=== PATIENT | female | born 1995 | race Caucasian/White ===

== ENCOUNTER 2017-01-09 22:32 | Inpatient (IN) | payer MEDICAID ==
[~2017-01-09] VITALS: Ht 160 cm; Wt 59.6 kg
[2017-01-10 01:10] VITALS: BP 120/66
[2017-01-10] MEDS ORDERED: ZOLPIDEM TARTRATE 10 MG TABLET PO PRN (01:30)
[2017-01-10 01:50] VITALS: BP 101/57
[2017-01-10 08:48] VITALS: BP 118/62
[2017-01-10] MEDS: FLUoxetine HCL 20 MG CAPSULE PO SCH (12:52)
[2017-01-10] MEDS: OLANZapine 5 MG RAPDIS TABLET PO SCH (12:52)
[2017-01-10 16:10] VITALS: BP 109/74
[2017-01-11 05:19] VITALS: BP 129/67
[2017-01-11 07:47] LABS: BASOPHILS % (AUTO) 0.5 % (0.0-2.0); EOSINOPHILS % (AUTO) 3.4 % (1.0-6.0); HEMATOCRIT 40.5 % (36-46); HEMOGLOBIN 13.1 g/dL (12.0-16.0); LYMPHOCYTES # (AUTO) 2.7 K/uL (1.0-4.8); LYMPHOCYTES % (AUTO) 27.1 % (22.0-44.0); MEAN CORPUSCULAR HEMOGLOBIN 31.2 pg (26.0-34.0); MEAN CORPUSCULAR HGB CONC 32.3 G/dL (31.0-37.0); MEAN CORPUSCULAR VOLUME 97 fL (80-100); MONOCYTES # (AUTO) 0.6 K/uL (0.1-1.0); MONOCYTES % (AUTO) 6.3 % (2.0-9.0); NEUTROPHILS # (AUTO) 6.4 K/uL (1.8-7.7); NEUTROPHILS % (AUTO) 62.7 % (40.0-70.0); PLATELET COUNT (AUTO) 220 K/uL (150-450); RED BLOOD CELL COUNT(AUTO) 4.19 MIL/uL (4.00-5.20); RED CELL DISTRIBUTION WIDTH 13.2 % (11.5-14.5); WHITE BLOOD COUNT (AUTO) 10.2 K/uL (4.5-11.0)
[2017-01-11] MEDS: FLUoxetine HCL 20 MG CAPSULE PO SCH (08:17)
[2017-01-11] MEDS: OLANZapine 5 MG RAPDIS TABLET PO SCH (08:17)
[2017-01-11 08:18] LABS: ALANINE AMINOTRANSFERASE 26 U/L (12-78); ALBUMIN 3.8 g/dL (3.4-5.0); ANION GAP 6 mmol/L (8-16); ASPARTATE AMINOTRANSFERASE 15 U/L (15-37); BILIRUBIN,TOTAL 0.6 mg/dL (0.1-1.0); CALCIUM, TOTAL 8.6 mg/dL (8.8-10.5); CARBON DIOXIDE 32 mmol/L (22-29); CHLORIDE 104 mmol/L (98-107); CREATININE 0.87 mg/dL (0.60-1.30); GLOMERULAR FILTR. RATE CALC > 60 mL/min (>60); POTASSIUM 3.6 mmol/L (3.5-5.1); SODIUM SERUM 142 mmol/L (136-145); TOTAL PROTEIN, SERUM 7.1 g/dL (6.4-8.2); UREA NITROGEN, BLOOD 15 mg/dL (7-18)
[2017-01-11 08:36] VITALS: BP 113/66
[2017-01-11 16:10] VITALS: BP 116/76
[2017-01-11] MEDS ORDERED: IBUPROFEN 400 MG TABLET PO PRN (21:00)
[2017-01-11] MEDS ORDERED: ACETAMINOPHEN 325 MG TABLET PO PRN (21:00)
[2017-01-12 00:08] VITALS: BP 103/64
[2017-01-12 08:16] LABS: HEMOGLOBIN A1C 5.2 % (4.5-6.2)
[2017-01-12 08:32] LABS: CHOL/HDL RATIO 2.1 (3.9-5.7); THYROID STIMULATING HORMONE 1.52 uIU/mL (0.36-3.74)
[2017-01-12] MEDS: OLANZapine 5 MG RAPDIS TABLET PO SCH (09:36)
[2017-01-12] MEDS: FLUoxetine HCL 20 MG CAPSULE PO SCH (09:36)
[2017-01-12 16:00] VITALS: BP 114/68
[2017-01-12] MEDS: OLANZapine 10 MG RAPDIS TABLET PO SCH ×2 (20:46→21:53)
[2017-01-13 05:16] VITALS: BP 130/78
[2017-01-13 08:33] VITALS: BP 131/77
[2017-01-13] MEDS ORDERED: FLUoxetine HCL 20 MG CAPSULE PO SCH (09:00)
[2017-01-13 16:22] VITALS: BP 124/66
[2017-01-13] MEDS ORDERED: OLANZapine 10 MG RAPDIS TABLET PO SCH (21:00)
[2017-01-14 06:41] VITALS: BP 127/76
[2017-01-14 08:15] VITALS: BP 122/72
[2017-01-14] MEDS: FLUoxetine HCL 20 MG CAPSULE PO SCH (08:38)
[2017-01-14 16:22] VITALS: BP 121/75
[2017-01-14] MEDS: OLANZapine 10 MG RAPDIS TABLET PO SCH (20:54)
[2017-01-15 05:52] VITALS: BP 130/73
[2017-01-15] MEDS: FLUoxetine HCL 20 MG CAPSULE PO SCH (08:19)
[2017-01-15 08:35] VITALS: BP 118/66
[2017-01-15 16:15] VITALS: BP 118/72
[2017-01-15] MEDS: OLANZapine 10 MG RAPDIS TABLET PO SCH (20:13)
[2017-01-16 04:15] VITALS: BP 123/90
[2017-01-16] MEDS: BusPIRone HCL 5 MG TABLET PO SCH ×3 (08:05→17:04)
[2017-01-16] MEDS: FLUoxetine HCL 20 MG CAPSULE PO SCH (08:05)
[2017-01-16 08:44] VITALS: BP 128/72
[2017-01-16 16:39] VITALS: BP 120/69
[2017-01-16] MEDS: OLANZapine 10 MG RAPDIS TABLET PO SCH (20:40)
[2017-01-17 00:10] VITALS: BP 124/70
[2017-01-17 08:10] VITALS: BP 118/72
[2017-01-17] MEDS: FLUoxetine HCL 20 MG CAPSULE PO SCH (08:23)
[2017-01-17] MEDS: BusPIRone HCL 5 MG TABLET PO SCH ×3 (08:23→16:31)
[2017-01-17 16:00] VITALS: BP 126/83
[2017-01-17] MEDS: OLANZapine 10 MG RAPDIS TABLET PO SCH (20:24)
[2017-01-18 06:40] VITALS: BP 123/88
[2017-01-18 08:41] VITALS: BP 126/70
[2017-01-18] MEDS: FLUoxetine HCL 20 MG CAPSULE PO SCH (10:00)
[2017-01-18] MEDS: BusPIRone HCL 5 MG TABLET PO SCH (10:01)
[2017-01-18] MEDS: BusPIRone HCL 10 MG TABLET PO SCH ×2 (13:43→16:59)
[2017-01-18 16:09] VITALS: BP 121/72
[2017-01-18] MEDS: OLANZapine 10 MG RAPDIS TABLET PO SCH (21:17)
[2017-01-19 05:25] VITALS: BP 140/91
[2017-01-19] MEDS: BusPIRone HCL 10 MG TABLET PO SCH ×3 (08:20→16:29)
[2017-01-19] MEDS: FLUoxetine HCL 20 MG CAPSULE PO SCH (08:21)
[2017-01-19 08:35] VITALS: BP 121/72
[2017-01-19 16:00] VITALS: BP 122/93
[2017-01-19] MEDS: OLANZapine 10 MG RAPDIS TABLET PO SCH (20:32)
[2017-01-20 06:21] VITALS: BP 138/80
[2017-01-20 08:31] VITALS: BP 121/86
[2017-01-20] MEDS: BusPIRone HCL 15 MG TABLET PO SCH ×3 (08:36→17:41)
[2017-01-20] MEDS: FLUoxetine HCL 20 MG CAPSULE PO SCH (08:36)
[2017-01-20] MEDS: LORazepam 2 MG TABLET PO PRN (16:22)
[2017-01-20 16:27] VITALS: BP 128/89
[2017-01-20] MEDS: OLANZapine 10 MG RAPDIS TABLET PO SCH (20:25)
[2017-01-21 06:04] VITALS: BP 126/85
[2017-01-21 08:15] VITALS: BP 139/80
[2017-01-21] MEDS: LORazepam 2 MG TABLET PO PRN (08:27)
[2017-01-21] MEDS: FLUoxetine HCL 20 MG CAPSULE PO SCH (08:27)
[2017-01-21] MEDS: BusPIRone HCL 15 MG TABLET PO SCH ×2 (08:27→12:29)
[2017-01-21] MEDS ORDERED: FLUO-191 PO (09:46)
[2017-01-21] MEDS ORDERED: OLAN10TA6 PO (09:46)
[2017-01-21] MEDS ORDERED: BUSP15 PO (09:46)
== END 2017-01-21 12:50 | disposition home or self-care (01) | DRG 751 ==
LOC: EDSTATUS 22:33 → B2S 01-10 01:57
PROVIDERS: ADMIT Psychiatry & Neurology Psychiatry; ATTEND Psychiatry & Neurology Psychiatry
DX: F33.3 Major depressive disorder, recurrent, severe with psychotic symptoms (principal); R45.851 Suicidal ideations; F41.9 Anxiety disorder, unspecified; F10.10 Alcohol abuse, uncomplicated; F60.3 Borderline personality disorder; F19.10 Other psychoactive substance abuse, uncomplicated; Z71.41 Alcohol abuse counseling and surveillance of alcoholic
CPT/HCPCS: 83036; 84439; 84443

== ENCOUNTER 2017-01-24 22:00 | Inpatient (IN) | payer MEDICAID, OTHER ==
[~2017-01-24] VITALS: Ht 160 cm; Wt 65.8 kg
[~2017-01-24 22:00] MED LIST: BUSP15 PO; FLUO-191 PO; OLAN10TA6 PO
[2017-01-24 22:35] LABS: BASOPHILS % (AUTO) 0.6 % (0.0-2.0); EOSINOPHILS % (AUTO) 3.2 % (1.0-6.0); HEMATOCRIT 35.9 % (36-46); HEMOGLOBIN 12.1 g/dL (12.0-16.0); LYMPHOCYTES % (AUTO) 26.7 % (22.0-44.0); MEAN CORPUSCULAR HEMOGLOBIN 32.1 pg (26.0-34.0); MEAN CORPUSCULAR HGB CONC 33.6 G/dL (31.0-37.0); MEAN CORPUSCULAR VOLUME 95 fL (80-100); MONOCYTES # (AUTO) 0.7 K/uL (0.1-1.0); MONOCYTES % (AUTO) 6.2 % (2.0-9.0); NEUTROPHILS % (AUTO) 63.3 % (40.0-70.0); PLATELET COUNT (AUTO) 232 K/uL (150-450); RED BLOOD CELL COUNT(AUTO) 3.76 MIL/uL (4.00-5.20); RED CELL DISTRIBUTION WIDTH 13.5 % (11.5-14.5)
[2017-01-24 23:00] LABS: ANION GAP 8 mmol/L (8-16); CALCIUM, TOTAL 8.7 mg/dL (8.8-10.5); CARBON DIOXIDE 27 mmol/L (22-29); CHLORIDE 104 mmol/L (98-107); CREATININE 0.66 mg/dL (0.60-1.30); GLOMERULAR FILTR. RATE CALC > 60 mL/min (>60); POTASSIUM 3.8 mmol/L (3.5-5.1); SODIUM SERUM 139 mmol/L (136-145); UREA NITROGEN, BLOOD 15 mg/dL (7-18)
[2017-01-24 23:07] LABS: ALANINE AMINOTRANSFERASE 30 U/L (12-78); ALBUMIN 3.8 g/dL (3.4-5.0); ASPARTATE AMINOTRANSFERASE 20 U/L (15-37); BILIRUBIN,TOTAL 0.2 mg/dL (0.1-1.0)
[2017-01-24] MEDS ORDERED: LORazepam 2 MG TABLET PO ONE (23:30)
[2017-01-24] MEDS ORDERED: ACETAMINOPHEN 500 MG TABLET PO ONE (23:45)
[2017-01-25 02:07] VITALS: BP 114/74
[2017-01-25] MEDS: ZOLPIDEM TARTRATE 10 MG TABLET PO PRN (02:22)
[2017-01-25 08:12] LABS: CHOL/HDL RATIO 2.1 (3.9-5.7)
[2017-01-25 08:45] VITALS: BP 139/83
[2017-01-25] MEDS: LORazepam 2 MG TABLET PO PRN ×3 (09:33→18:32)
[2017-01-25] MEDS: HALOPERIDOL 5 MG TABLET PO PRN (09:43)
[2017-01-25 16:00] VITALS: BP 128/78
[2017-01-25] MEDS: FLUoxetine HCL 20 MG CAPSULE PO SCH (17:14)
[2017-01-25] MEDS: BusPIRone HCL 10 MG TABLET PO SCH (17:14)
[2017-01-25] MEDS: OLANZapine 10 MG RAPDIS TABLET PO SCH (21:44)
[2017-01-26] MEDS: LORazepam 2 MG TABLET PO PRN ×2 (06:15→17:56)
[2017-01-26 06:40] VITALS: BP 119/78
[2017-01-26 08:29] VITALS: BP 132/73
[2017-01-26] MEDS: FLUoxetine HCL 20 MG CAPSULE PO SCH (08:38)
[2017-01-26] MEDS: BusPIRone HCL 10 MG TABLET PO SCH ×3 (08:38→17:03)
[2017-01-26] MEDS ORDERED: ACETAMINOPHEN 325 MG TABLET PO PRN (10:00)
[2017-01-26] MEDS ORDERED: IBUPROFEN 400 MG TABLET PO PRN (10:00)
[2017-01-26 16:14] VITALS: BP 121/69
[2017-01-26] MEDS: HALOPERIDOL 5 MG TABLET PO PRN (18:54)
[2017-01-26] MEDS: ZOLPIDEM TARTRATE 10 MG TABLET PO PRN (20:41)
[2017-01-26] MEDS: OLANZapine 10 MG RAPDIS TABLET PO SCH (20:41)
[2017-01-27 06:12] VITALS: BP 118/69
[2017-01-27] MEDS: LORazepam 2 MG TABLET PO PRN ×3 (08:38→21:09)
[2017-01-27] MEDS: BusPIRone HCL 10 MG TABLET PO SCH ×3 (08:38→16:42)
[2017-01-27] MEDS: FLUoxetine HCL 20 MG CAPSULE PO SCH (08:39)
[2017-01-27 08:40] VITALS: BP 113/62
[2017-01-27 09:07] LABS: APPEARANCE,URINE CLEAR (CLEAR); GLUCOSE, URINE (UA) NEGATIVE (NEGATIVE); KETONES,URINE NEGATIVE (NEGATIVE); LEUKOCYTE ESTERASE ,URINE NEGATIVE (NEGATIVE); OCCULT BLOOD,URINE NEGATIVE (NEGATIVE); PROTEIN,URINE NEGATIVE (NEGATIVE)
[2017-01-27 09:13] LABS: CHOL/HDL RATIO 2.3 (3.9-5.7); THYROID STIMULATING HORMONE 0.93 uIU/mL (0.36-3.74)
[2017-01-27 09:15] LABS: ADD UA MICROSCOPIC NO
[2017-01-27] MEDS: OLANZapine 10 MG RAPDIS TABLET PO SCH (21:09)
[2017-01-27] MEDS: ZOLPIDEM TARTRATE 10 MG TABLET PO PRN (21:09)
[2017-01-28 03:09] VITALS: BP 113/63
[2017-01-28] MEDS: HALOPERIDOL 5 MG TABLET PO PRN ×3 (03:11→18:03)
[2017-01-28] MEDS: LORazepam 2 MG TABLET PO PRN ×3 (07:22→17:12)
[2017-01-28] MEDS: FLUoxetine HCL 20 MG CAPSULE PO SCH (08:31)
[2017-01-28] MEDS: BusPIRone HCL 10 MG TABLET PO SCH ×3 (08:31→16:04)
[2017-01-28 08:51] VITALS: BP 118/85
[2017-01-28 16:13] VITALS: BP 126/65
[2017-01-28] MEDS ORDERED: DOCUSATE SODIUM 100 MG CAPSULE PO PRN (17:15)
[2017-01-28] MEDS: OLANZapine 10 MG RAPDIS TABLET PO SCH (20:53)
[2017-01-29 03:46] VITALS: BP 111/70
[2017-01-29] MEDS: LORazepam 2 MG TABLET PO PRN ×3 (04:22→14:25)
[2017-01-29 08:03] VITALS: BP 130/61
[2017-01-29] MEDS: FLUoxetine HCL 20 MG CAPSULE PO SCH (08:37)
[2017-01-29] MEDS: BusPIRone HCL 10 MG TABLET PO SCH ×3 (08:37→16:25)
[2017-01-29] MEDS: HALOPERIDOL 5 MG TABLET PO PRN (15:28)
[2017-01-29 16:15] VITALS: BP 122/73
[2017-01-29] MEDS: OLANZapine 10 MG RAPDIS TABLET PO SCH (20:15)
[2017-01-30 04:45] VITALS: BP 112/69
[2017-01-30] MEDS: LORazepam 2 MG TABLET PO PRN ×2 (04:48→11:18)
[2017-01-30] MEDS: FLUoxetine HCL 20 MG CAPSULE PO SCH (08:21)
[2017-01-30] MEDS: BusPIRone HCL 10 MG TABLET PO SCH ×3 (08:21→17:13)
[2017-01-30 09:25] VITALS: BP 116/72
[2017-01-30 16:40] VITALS: BP 127/82
[2017-01-30] MEDS: ZOLPIDEM TARTRATE 10 MG TABLET PO PRN (20:48)
[2017-01-30] MEDS: OLANZapine 10 MG RAPDIS TABLET PO SCH (20:48)
[2017-01-31 06:19] VITALS: BP 111/80
[2017-01-31] MEDS: HALOPERIDOL 5 MG TABLET PO PRN ×2 (08:41→13:19)
[2017-01-31] MEDS: BusPIRone HCL 10 MG TABLET PO SCH ×3 (08:41→16:58)
[2017-01-31] MEDS: FLUoxetine HCL 20 MG CAPSULE PO SCH (08:41)
[2017-01-31] MEDS: LORazepam 2 MG TABLET PO PRN ×3 (08:42→18:05)
[2017-01-31 09:55] VITALS: BP 112/71
[2017-01-31 16:36] VITALS: BP 100/62
[2017-01-31] MEDS: OLANZapine 10 MG RAPDIS TABLET PO SCH (20:49)
[2017-02-01 00:40] VITALS: BP 119/63
[2017-02-01] MEDS: ZOLPIDEM TARTRATE 10 MG TABLET PO PRN (00:50)
[2017-02-01 06:35] VITALS: BP 120/58
[2017-02-01] MEDS: LORazepam 2 MG TABLET PO PRN ×3 (06:38→17:51)
[2017-02-01 08:10] VITALS: BP 108/65
[2017-02-01] MEDS: BusPIRone HCL 10 MG TABLET PO SCH ×3 (08:49→16:22)
[2017-02-01] MEDS: FLUoxetine HCL 20 MG CAPSULE PO SCH (08:49)
[2017-02-01] MEDS: HALOPERIDOL 5 MG TABLET PO PRN ×2 (09:24→14:24)
[2017-02-01 16:14] VITALS: BP 119/75
[2017-02-01] MEDS: OLANZapine 10 MG RAPDIS TABLET PO SCH (21:06)
[2017-02-02 03:39] VITALS: BP 110/70
[2017-02-02] MEDS: LORazepam 2 MG TABLET PO PRN ×2 (03:41→09:25)
[2017-02-02 08:10] VITALS: BP 110/63
[2017-02-02] MEDS: FLUoxetine HCL 20 MG CAPSULE PO SCH (08:34)
[2017-02-02] MEDS: BusPIRone HCL 10 MG TABLET PO SCH ×3 (08:34→17:42)
[2017-02-02 16:14] VITALS: BP 110/65
[2017-02-02] MEDS: HALOPERIDOL 5 MG TABLET PO PRN (17:55)
[2017-02-02] MEDS: ZOLPIDEM TARTRATE 10 MG TABLET PO PRN (21:26)
[2017-02-02] MEDS: OLANZapine 10 MG RAPDIS TABLET PO SCH (21:26)
[2017-02-03 03:20] VITALS: BP_SYST 111; BP_DIAS 7; BP_DIAS 78
[2017-02-03] MEDS: LORazepam 2 MG TABLET PO PRN ×3 (03:21→17:17)
[2017-02-03 08:34] VITALS: BP 123/64
[2017-02-03] MEDS: BusPIRone HCL 10 MG TABLET PO SCH ×3 (08:45→16:45)
[2017-02-03] MEDS: FLUoxetine HCL 20 MG CAPSULE PO SCH (08:45)
[2017-02-03 16:38] VITALS: BP 113/81
[2017-02-03] MEDS: ZOLPIDEM TARTRATE 10 MG TABLET PO PRN (20:27)
[2017-02-03] MEDS: OLANZapine 10 MG RAPDIS TABLET PO SCH (20:35)
[2017-02-04] MEDS: HALOPERIDOL 5 MG TABLET PO PRN (06:06)
[2017-02-04 06:38] VITALS: BP 131/91
[2017-02-04] MEDS: LORazepam 2 MG TABLET PO PRN ×3 (08:11→17:12)
[2017-02-04] MEDS: BusPIRone HCL 10 MG TABLET PO SCH ×3 (08:11→16:55)
[2017-02-04] MEDS: FLUoxetine HCL 20 MG CAPSULE PO SCH (08:11)
[2017-02-04 09:19] VITALS: BP 118/69
[2017-02-04 16:21] VITALS: BP 109/68
[2017-02-04] MEDS: LITHIUM CARBONATE 300 MG CAPSULE PO SCH (16:55)
[2017-02-04] MEDS: OLANZapine 10 MG RAPDIS TABLET PO SCH (20:19)
[2017-02-04] MEDS: ZOLPIDEM TARTRATE 10 MG TABLET PO PRN (20:19)
[2017-02-05 00:56] VITALS: BP 122/80
[2017-02-05] MEDS: LORazepam 2 MG TABLET PO PRN ×3 (00:58→16:09)
[2017-02-05] MEDS: FLUoxetine HCL 20 MG CAPSULE PO SCH (08:39)
[2017-02-05] MEDS: LITHIUM CARBONATE 300 MG CAPSULE PO SCH ×2 (08:39→16:22)
[2017-02-05] MEDS: BusPIRone HCL 10 MG TABLET PO SCH ×3 (08:39→16:22)
[2017-02-05 08:42] VITALS: BP 121/55
[2017-02-05] MEDS: HALOPERIDOL 5 MG TABLET PO PRN (16:09)
[2017-02-05 16:33] VITALS: BP 122/65
[2017-02-05] MEDS: OLANZapine 10 MG RAPDIS TABLET PO SCH (20:30)
[2017-02-05] MEDS: ZOLPIDEM TARTRATE 10 MG TABLET PO PRN (21:19)
[2017-02-06 03:57] VITALS: BP 123/71
[2017-02-06] MEDS: LORazepam 2 MG TABLET PO PRN ×3 (03:59→13:55)
[2017-02-06] MEDS: LITHIUM CARBONATE 300 MG CAPSULE PO SCH ×2 (08:50→16:41)
[2017-02-06] MEDS: BusPIRone HCL 10 MG TABLET PO SCH ×3 (08:50→16:41)
[2017-02-06] MEDS: FLUoxetine HCL 20 MG CAPSULE PO SCH (08:50)
[2017-02-06 08:51] VITALS: BP 112/69
[2017-02-06 16:00] VITALS: BP 108/62
[2017-02-06] MEDS: OLANZapine 10 MG RAPDIS TABLET PO SCH (20:05)
[2017-02-06] MEDS: ZOLPIDEM TARTRATE 10 MG TABLET PO PRN (20:44)
[2017-02-07 01:30] VITALS: BP 110/79
[2017-02-07] MEDS: LORazepam 2 MG TABLET PO PRN ×3 (02:07→18:00)
[2017-02-07] MEDS: BusPIRone HCL 10 MG TABLET PO SCH ×3 (08:48→16:34)
[2017-02-07] MEDS: FLUoxetine HCL 20 MG CAPSULE PO SCH (08:48)
[2017-02-07] MEDS: LITHIUM CARBONATE 300 MG CAPSULE PO SCH ×2 (08:48→16:34)
[2017-02-07 09:25] VITALS: BP 126/67
[2017-02-07 16:15] VITALS: BP 114/68
[2017-02-07] MEDS: OLANZapine 10 MG RAPDIS TABLET PO SCH (20:20)
[2017-02-08 00:40] VITALS: BP 119/76
[2017-02-08] MEDS: ZOLPIDEM TARTRATE 10 MG TABLET PO PRN ×2 (00:42→21:08)
[2017-02-08 07:38] LABS: BASOPHILS % (AUTO) 0.7 % (0.0-2.0); EOSINOPHILS % (AUTO) 3.2 % (1.0-6.0); HEMATOCRIT 37.7 % (36-46); HEMOGLOBIN 12.8 g/dL (12.0-16.0); LYMPHOCYTES # (AUTO) 2.3 K/uL (1.0-4.8); LYMPHOCYTES % (AUTO) 22.6 % (22.0-44.0); MEAN CORPUSCULAR HEMOGLOBIN 32.3 pg (26.0-34.0); MEAN CORPUSCULAR VOLUME 95 fL (80-100); MONOCYTES # (AUTO) 0.7 K/uL (0.1-1.0); MONOCYTES % (AUTO) 6.5 % (2.0-9.0); PLATELET COUNT (AUTO) 215 K/uL (150-450); RED BLOOD CELL COUNT(AUTO) 3.97 MIL/uL (4.00-5.20); RED CELL DISTRIBUTION WIDTH 13.2 % (11.5-14.5); WHITE BLOOD COUNT (AUTO) 10.4 K/uL (4.5-11.0)
[2017-02-08 07:55] LABS: ALANINE AMINOTRANSFERASE 35 U/L (12-78); ALBUMIN 3.8 g/dL (3.4-5.0); ANION GAP 10 mmol/L (8-16); ASPARTATE AMINOTRANSFERASE 17 U/L (15-37); BILIRUBIN,TOTAL 0.3 mg/dL (0.1-1.0); CALCIUM, TOTAL 8.7 mg/dL (8.8-10.5); CARBON DIOXIDE 27 mmol/L (22-29); CHLORIDE 104 mmol/L (98-107); CREATININE 0.76 mg/dL (0.60-1.30); GLOMERULAR FILTR. RATE CALC > 60 mL/min (>60); POTASSIUM 3.8 mmol/L (3.5-5.1); SODIUM SERUM 141 mmol/L (136-145); TOTAL PROTEIN, SERUM 7.3 g/dL (6.4-8.2); UREA NITROGEN, BLOOD 15 mg/dL (7-18)
[2017-02-08 08:15] LABS: LITHIUM 0.35 mmol/L (0.60-1.20)
[2017-02-08] MEDS: BusPIRone HCL 10 MG TABLET PO SCH ×3 (08:21→16:00)
[2017-02-08] MEDS: FLUoxetine HCL 20 MG CAPSULE PO SCH (08:21)
[2017-02-08] MEDS: LITHIUM CARBONATE 300 MG CAPSULE PO SCH ×2 (08:21→16:00)
[2017-02-08 08:25] VITALS: BP 115/69
[2017-02-08] MEDS: LORazepam 2 MG TABLET PO PRN ×2 (10:47→15:55)
[2017-02-08 16:12] VITALS: BP 112/67
[2017-02-08] MEDS: HALOPERIDOL 5 MG TABLET PO PRN (17:37)
[2017-02-08] MEDS: OLANZapine 10 MG RAPDIS TABLET PO SCH (20:14)
[2017-02-09 01:00] VITALS: BP 118/82
[2017-02-09] MEDS: LORazepam 2 MG TABLET PO PRN ×3 (01:12→16:37)
[2017-02-09] MEDS: HALOPERIDOL 5 MG TABLET PO PRN ×2 (01:12→08:16)
[2017-02-09] MEDS: FLUoxetine HCL 20 MG CAPSULE PO SCH (08:15)
[2017-02-09] MEDS: LITHIUM CARBONATE 300 MG CAPSULE PO SCH ×2 (08:15→16:37)
[2017-02-09] MEDS: BusPIRone HCL 10 MG TABLET PO SCH ×3 (08:16→16:38)
[2017-02-09 08:49] VITALS: BP 116/60
[2017-02-09] MEDS ORDERED: DSS100 PO (14:50)
[2017-02-09] MEDS ORDERED: LITH300C3 PO (14:50)
[2017-02-09 16:06] VITALS: BP 110/62
== END 2017-02-09 18:56 | disposition home or self-care (01) | DRG 751 ==
LOC: EMS 22:01 → 3EI 01-25 00:15 → B2S 01-25 00:15
PROVIDERS: ADMIT Psychiatry & Neurology Psychiatry; ATTEND Psychiatry & Neurology Psychiatry
DX: F33.2 Major depressive disorder, recurrent severe without psychotic features (principal); F22 Delusional disorders; R45.851 Suicidal ideations; F41.9 Anxiety disorder, unspecified; F60.3 Borderline personality disorder; Z72.89 Other problems related to lifestyle; Z87.891 Personal history of nicotine dependence
CPT/HCPCS: 83036; 84443; 87081; 99285; G0480

== ENCOUNTER 2017-02-11 20:56 | Emergency (ER) | payer MEDICAID, OTHER ==
[~2017-02-11] VITALS: Ht 167.6 cm; Wt 59.1 kg
[~2017-02-11 20:56] MED LIST changes: +DSS100 PO; +LITH300C3 PO
[2017-02-11] MEDS ORDERED: SODIUM CHLORIDE 0.9% 1,000 ML IV ONE (21:15)
[2017-02-11 21:16] LABS: BASOPHILS % (AUTO) 0.2 % (0.0-2.0); EOSINOPHILS % (AUTO) 0.3 % (1.0-6.0); HEMATOCRIT 38.4 % (36-46); HEMOGLOBIN 13.1 g/dL (12.0-16.0); LYMPHOCYTES # (AUTO) 2.2 K/uL (1.0-4.8); LYMPHOCYTES % (AUTO) 13.2 % (22.0-44.0); MEAN CORPUSCULAR HEMOGLOBIN 32.2 pg (26.0-34.0); MEAN CORPUSCULAR VOLUME 95 fL (80-100); MONOCYTES # (AUTO) 0.9 K/uL (0.1-1.0); MONOCYTES % (AUTO) 5.4 % (2.0-9.0); NEUTROPHILS # (AUTO) 13.3 K/uL (1.8-7.7); NEUTROPHILS % (AUTO) 80.9 % (40.0-70.0); PLATELET COUNT (AUTO) 251 K/uL (150-450); RED BLOOD CELL COUNT(AUTO) 4.06 MIL/uL (4.00-5.20); RED CELL DISTRIBUTION WIDTH 13.4 % (11.5-14.5); WHITE BLOOD COUNT (AUTO) 16.4 K/uL (4.5-11.0)
[2017-02-11 21:25] LABS: ANION GAP 8 mmol/L (8-16); CALCIUM, TOTAL 8.8 mg/dL (8.8-10.5); CARBON DIOXIDE 27 mmol/L (22-29); CHLORIDE 102 mmol/L (98-107); CREATININE 0.88 mg/dL (0.60-1.30); GLOMERULAR FILTR. RATE CALC > 60 mL/min (>60); POTASSIUM 3.6 mmol/L (3.5-5.1); SODIUM SERUM 137 mmol/L (136-145); UREA NITROGEN, BLOOD 9 mg/dL (7-18)
[2017-02-11 21:31] LABS: ALANINE AMINOTRANSFERASE 37 U/L (12-78); ALBUMIN 3.9 g/dL (3.4-5.0); ASPARTATE AMINOTRANSFERASE 21 U/L (15-37); BILIRUBIN,TOTAL 0.3 mg/dL (0.1-1.0); TOTAL PROTEIN, SERUM 7.5 g/dL (6.4-8.2)
[2017-02-11] MEDS ORDERED: ACETAMINOPHEN 500 MG TABLET PO ONE (22:45)
[2017-02-11] MEDS ORDERED: HALOPERIDOL 5 MG TABLET PO ONE (22:45)
[2017-02-11] MEDS ORDERED: LORazepam 1 MG TABLET PO ONE (22:45)
[2017-02-12 00:42] VITALS: BP 114/71
[2017-02-12] MEDS ORDERED: BUSP10TA23 PO (14:48)
== END 2017-02-12 00:43 | disposition home or self-care (01) ==
LOC: EMS 21:03
DX: S00.83XA Contusion of other part of head, initial encounter (principal); S00.81XA Abrasion of other part of head, initial encounter; F20.9 Schizophrenia, unspecified; F15.90 Other stimulant use, unspecified, uncomplicated; Z87.891 Personal history of nicotine dependence; W18.39XA Other fall on same level, initial encounter; Y93.89 Activity, other specified; Y92.89 Other specified places as the place of occurrence of the external cause; Y99.8 Other external cause status
CPT/HCPCS: 36415; 70450; 80053; 80307; 82962; 84703; 85025; 93005; 96360; 96361; 99285; G0480; J7030

== ENCOUNTER 2017-09-17 14:04 | Inpatient (IN) | payer MEDICAID, OTHER ==
[~2017-09-17] VITALS: Ht 160 cm; Wt 71.2 kg
[~2017-09-17 14:04] MED LIST changes: +BUSP10TA23 PO; -BUSP15 PO
[2017-09-17 14:32] LABS: BASOPHILS % (AUTO) 0.8 % (0.0-2.0); EOSINOPHILS % (AUTO) 2.2 % (1.0-6.0); HEMATOCRIT 42.6 % (36-46); HEMOGLOBIN 14.4 g/dL (12.0-16.0); LYMPHOCYTES # (AUTO) 2.3 K/uL (1.0-4.8); LYMPHOCYTES % (AUTO) 22.4 % (22.0-44.0); MEAN CORPUSCULAR HEMOGLOBIN 31.9 pg (26.0-34.0); MEAN CORPUSCULAR HGB CONC 33.7 G/dL (31.0-37.0); MEAN CORPUSCULAR VOLUME 95 fL (80-100); MONOCYTES # (AUTO) 0.8 K/uL (0.1-1.0); MONOCYTES % (AUTO) 7.5 % (2.0-9.0); NEUTROPHILS # (AUTO) 6.9 K/uL (1.8-7.7); NEUTROPHILS % (AUTO) 67.1 % (40.0-70.0); PLATELET COUNT (AUTO) 282 K/uL (150-450); RED CELL DISTRIBUTION WIDTH 12.9 % (11.5-14.5)
[2017-09-17 14:43] LABS: ANION GAP 10 mmol/L (8-16); CALCIUM, TOTAL 9.6 mg/dL (8.8-10.5); CARBON DIOXIDE 30 mmol/L (22-29); CHLORIDE 104 mmol/L (98-107); CREATININE 0.76 mg/dL (0.60-1.30); GLOMERULAR FILTR. RATE CALC > 60 mL/min (>60); GLUCOSE,RANDOM 91 mg/dL (70-110); SODIUM SERUM 144 mmol/L (136-145); UREA NITROGEN, BLOOD 8 mg/dL (7-18)
[2017-09-17 14:51] LABS: ALANINE AMINOTRANSFERASE 17 U/L (12-78); ALBUMIN 4.2 g/dL (3.4-5.0); ALKALINE PHOSPHATASE 72 U/L (46-116); ASPARTATE AMINOTRANSFERASE 10 U/L (15-37); BILIRUBIN,TOTAL 0.5 mg/dL (0.1-1.0); TOTAL PROTEIN, SERUM 8.3 g/dL (6.4-8.2)
[2017-09-17] MEDS ORDERED: ZOLPIDEM TARTRATE 10 MG TABLET PO PRN (16:15)
[2017-09-17 16:19] LABS: AMPHET/METH SCREEN,URINE POSITIVE (NEGATIVE); BARBITURATE SCREEN, URINE NEGATIVE (NEGATIVE); BENZODIAZEPINES SCREEN,URINE NEGATIVE (NEGATIVE); CANNABINOID SCREEN,URINE NEGATIVE (NEGATIVE); COCAINE SCREEN,URINE NEGATIVE (NEGATIVE); METHADONE SCREEN, URINE NEGATIVE (NEGATIVE); OPIATE SCREEN,URINE NEGATIVE (NEGATIVE)
[2017-09-17 16:24] LABS: PHENCYCLIDINE SCREEN,URINE NEGATIVE (NEGATIVE)
[2017-09-17] MEDS ORDERED: ACETAMINOPHEN 500 MG TABLET PO ONE (17:00)
[2017-09-17 18:15] LABS: APPEARANCE,URINE TURBID (CLEAR); GLUCOSE, URINE (UA) NEGATIVE (NEGATIVE); KETONES,URINE 15 mg/dL (NEGATIVE); LEUKOCYTE ESTERASE ,URINE SMALL (NEGATIVE); NITRATE,URINE NEGATIVE (NEGATIVE); OCCULT BLOOD,URINE LARGE (NEGATIVE); PROTEIN,URINE POS 1+ (NEGATIVE)
[2017-09-17 18:30] LABS: BILIRUBIN,URINE PRELIM. POSITIVE (NEGATIVE)
[2017-09-17 18:34] LABS: BACTERIA,URINE Few /HPF (None Seen)
[2017-09-17 18:35] LABS: AMORPHOUS SEDIMENT,UR Many /LPF (None Seen); CALCIUM OXALATE CRYSTALS,UR Few /LPF (None Seen); SQUAMOUS EPITHELIAL CELL,UR Few /LPF (None Seen)
[2017-09-17] MEDS: HALOPERIDOL 5 MG TABLET PO PRN (20:45)
[2017-09-17] MEDS: LORazepam 2 MG TABLET PO PRN (20:45)
[2017-09-17] MEDS ORDERED: ACETAMINOPHEN 325 MG TABLET PO PRN (21:15)
[2017-09-17] MEDS ORDERED: IBUPROFEN 400 MG TABLET PO PRN (21:15)
[2017-09-17 21:55] VITALS: BP 104/68
[2017-09-18] MEDS ORDERED: INFLUENZA VIRUS VACCINE QVS 2017-18 (3YR+)/PF 60 MCG/0.5 ML SYRINGE IM ONE (04:15)
[2017-09-18 06:29] LABS: BASOPHILS % (AUTO) 0.9 % (0.0-2.0); EOSINOPHILS % (AUTO) 4.3 % (1.0-6.0); HEMATOCRIT 39.9 % (36-46); HEMOGLOBIN 13.6 g/dL (12.0-16.0); LYMPHOCYTES # (AUTO) 3.2 K/uL (1.0-4.8); LYMPHOCYTES % (AUTO) 36.7 % (22.0-44.0); MEAN CORPUSCULAR HEMOGLOBIN 32.1 pg (26.0-34.0); MEAN CORPUSCULAR HGB CONC 34.1 G/dL (31.0-37.0); MEAN CORPUSCULAR VOLUME 94 fL (80-100); MONOCYTES # (AUTO) 0.7 K/uL (0.1-1.0); MONOCYTES % (AUTO) 8.1 % (2.0-9.0); NEUTROPHILS # (AUTO) 4.4 K/uL (1.8-7.7); PLATELET COUNT (AUTO) 248 K/uL (150-450); RED BLOOD CELL COUNT(AUTO) 4.24 MIL/uL (4.00-5.20); RED CELL DISTRIBUTION WIDTH 12.8 % (11.5-14.5)
[2017-09-18 07:34] LABS: ALANINE AMINOTRANSFERASE 14 U/L (12-78); ALBUMIN 3.7 g/dL (3.4-5.0); ALKALINE PHOSPHATASE 69 U/L (46-116); ANION GAP 8 mmol/L (8-16); ASPARTATE AMINOTRANSFERASE 11 U/L (15-37); BILIRUBIN,TOTAL 0.5 mg/dL (0.1-1.0); CALCIUM, TOTAL 9.1 mg/dL (8.8-10.5); CARBON DIOXIDE 30 mmol/L (22-29); CHLORIDE 103 mmol/L (98-107); FREE T4 (FREE THYROXINE) 1.09 ng/dL (0.76-1.46); GLOMERULAR FILTR. RATE CALC > 60 mL/min (>60); GLUCOSE,RANDOM 88 mg/dL (70-110); POTASSIUM 4.4 mmol/L (3.5-5.1); SODIUM SERUM 141 mmol/L (136-145); THYROID STIMULATING HORMONE 0.76 uIU/mL (0.36-3.74); TOTAL PROTEIN, SERUM 7.1 g/dL (6.4-8.2); UREA NITROGEN, BLOOD 11 mg/dL (7-18)
[2017-09-18 08:25] VITALS: BP 113/69
[2017-09-18] MEDS: BusPIRone HCL 10 MG TABLET PO SCH ×2 (12:38→16:44)
[2017-09-18] MEDS: DOCUSATE SODIUM 100 MG CAPSULE PO SCH (16:44)
[2017-09-18] MEDS: OLANZapine 10 MG RAPDIS TABLET PO SCH (20:44)
[2017-09-19] MEDS: BusPIRone HCL 10 MG TABLET PO SCH ×3 (08:30→16:37)
[2017-09-19] MEDS: DOCUSATE SODIUM 100 MG CAPSULE PO SCH ×2 (08:30→16:37)
[2017-09-19] MEDS: FLUoxetine HCL 20 MG CAPSULE PO SCH (08:30)
[2017-09-19] MEDS: LITHIUM CARBONATE 300 MG TABLET PO SCH (08:31)
[2017-09-19 09:00] VITALS: BP 117/69
[2017-09-19] MEDS: OLANZapine 10 MG RAPDIS TABLET PO SCH (20:26)
[2017-09-19] MEDS: LORazepam 2 MG TABLET PO PRN (22:49)
[2017-09-19] MEDS: HALOPERIDOL 5 MG TABLET PO PRN (22:49)
[2017-09-19] MEDS ORDERED: DiphenhydrAMINE HCL 50 MG/ML VIAL ONE (22:58)
[2017-09-19] MEDS ORDERED: LORazepam 2 MG/ML VIAL ONE (22:58)
[2017-09-19] MEDS ORDERED: DiphenhydrAMINE HCL 50 MG/ML VIAL IM ONE (23:00)
[2017-09-19] MEDS ORDERED: HALOPERIDOL LACTATE 5 MG/ML VIAL IM ONE (23:00)
[2017-09-19] MEDS ORDERED: LORazepam 2 MG/ML VIAL IM ONE (23:00)
[2017-09-20 09:30] VITALS: BP 112/61
[2017-09-20] MEDS: FLUoxetine HCL 20 MG CAPSULE PO SCH (10:26)
[2017-09-20] MEDS: DOCUSATE SODIUM 100 MG CAPSULE PO SCH ×2 (10:26→16:43)
[2017-09-20] MEDS: BusPIRone HCL 10 MG TABLET PO SCH ×3 (10:26→16:43)
[2017-09-20] MEDS: LITHIUM CARBONATE 300 MG TABLET PO SCH (10:28)
[2017-09-20 17:31] VITALS: BP 126/77
[2017-09-20] MEDS: OLANZapine 10 MG RAPDIS TABLET PO SCH (20:46)
[2017-09-21 08:14] VITALS: BP 120/80
[2017-09-21] MEDS: DOCUSATE SODIUM 100 MG CAPSULE PO SCH ×2 (08:55→16:49)
[2017-09-21] MEDS: FLUoxetine HCL 20 MG CAPSULE PO SCH (08:56)
[2017-09-21] MEDS: BusPIRone HCL 10 MG TABLET PO SCH ×3 (08:56→16:49)
[2017-09-21] MEDS: LITHIUM CARBONATE 300 MG TABLET PO SCH (08:56)
[2017-09-21] MEDS: HALOPERIDOL 5 MG TABLET PO PRN (11:25)
[2017-09-21] MEDS: LORazepam 2 MG TABLET PO PRN (11:25)
[2017-09-21 16:13] VITALS: BP 123/71
[2017-09-21] MEDS: OLANZapine 10 MG RAPDIS TABLET PO SCH (20:29)
[2017-09-22 08:00] VITALS: BP 119/82
[2017-09-22] MEDS: FLUoxetine HCL 20 MG CAPSULE PO SCH (09:33)
[2017-09-22] MEDS: BusPIRone HCL 10 MG TABLET PO SCH ×3 (09:33→17:47)
[2017-09-22] MEDS: LITHIUM CARBONATE 300 MG TABLET PO SCH (09:33)
[2017-09-22] MEDS: DOCUSATE SODIUM 100 MG CAPSULE PO SCH ×2 (09:34→17:47)
[2017-09-22] MEDS: OLANZapine 10 MG RAPDIS TABLET PO SCH (20:18)
[2017-09-23 08:44] VITALS: BP 103/65
[2017-09-23] MEDS: FLUoxetine HCL 20 MG CAPSULE PO SCH (08:48)
[2017-09-23] MEDS: DOCUSATE SODIUM 100 MG CAPSULE PO SCH (08:48)
[2017-09-23] MEDS: BusPIRone HCL 10 MG TABLET PO SCH ×2 (08:49→12:19)
[2017-09-23] MEDS ORDERED: LITHIUM CARBONATE 450 MG ER TABLET PO SCH (09:00)
== END 2017-09-23 14:00 | disposition home or self-care (01) | DRG 750 ==
LOC: EMS 14:05 → 3EC 18:57 → 3EI 09-22 20:48
PROVIDERS: ADMIT Psychiatry & Neurology Child & Adolescent Psychiatry; ATTEND Psychiatry & Neurology Child & Adolescent Psychiatry
PROC: 3E0234Z Introduction of Serum, Toxoid and Vaccine into Muscle, Percutaneous Approach (ICD-10-PCS; principal; 2017-09-18)
DX: F20.0 Paranoid schizophrenia (principal); R45.851 Suicidal ideations; Z91.14 Patient's other noncompliance with medication regimen; F32.9 Major depressive disorder, single episode, unspecified; F15.10 Other stimulant abuse, uncomplicated; F41.9 Anxiety disorder, unspecified; F10.10 Alcohol abuse, uncomplicated; F17.210 Nicotine dependence, cigarettes, uncomplicated; Z23 Encounter for immunization; Z79.899 Other long term (current) drug therapy
CPT/HCPCS: 84439; 84443; 99285; 99406; G0480; J1200; J1630; J2060

== ENCOUNTER 2018-01-03 16:15 | Inpatient (IN) | payer MEDICAID, OTHER ==
[~2018-01-03] VITALS: Ht 160 cm; Wt 67.6 kg
[2018-01-03] MEDS ORDERED: LITH300T3 PO (19:25)
[2018-01-03] MEDS ORDERED: BENZ0.5T44 PO (19:25)
[2018-01-03] MEDS ORDERED: DIPH25TA20 PO (19:25)
[2018-01-03] MEDS ORDERED: HALO5 PO ×2 (19:25)
[2018-01-03 19:46] LABS: BASOPHILS % (AUTO) 0.7 % (0.0-2.0); EOSINOPHILS % (AUTO) 2.5 % (1.0-6.0); HEMATOCRIT 40.2 % (36-46); HEMOGLOBIN 13.9 g/dL (12.0-16.0); LYMPHOCYTES # (AUTO) 2.5 K/uL (1.0-4.8); LYMPHOCYTES % (AUTO) 27.4 % (22.0-44.0); MEAN CORPUSCULAR HEMOGLOBIN 31.5 pg (26.0-34.0); MEAN CORPUSCULAR HGB CONC 34.7 G/dL (31.0-37.0); MEAN CORPUSCULAR VOLUME 91 fL (80-100); MONOCYTES # (AUTO) 0.6 K/uL (0.1-1.0); MONOCYTES % (AUTO) 6.2 % (2.0-9.0); NEUTROPHILS # (AUTO) 5.8 K/uL (1.8-7.7); NEUTROPHILS % (AUTO) 63.2 % (40.0-70.0); PLATELET COUNT (AUTO) 245 K/uL (150-450); RED BLOOD CELL COUNT(AUTO) 4.42 MIL/uL (4.00-5.20); RED CELL DISTRIBUTION WIDTH 12.8 % (11.5-14.5)
[2018-01-03 20:14] LABS: ANION GAP 11 mmol/L (8-16); CALCIUM, TOTAL 8.9 mg/dL (8.8-10.5); CARBON DIOXIDE 27 mmol/L (22-29); CHLORIDE 101 mmol/L (98-107); CREATININE 0.87 mg/dL (0.60-1.30); GLOMERULAR FILTR. RATE CALC > 60 mL/min (>60); GLUCOSE,RANDOM 91 mg/dL (70-110); SODIUM SERUM 139 mmol/L (136-145); UREA NITROGEN, BLOOD 12 mg/dL (7-18)
[2018-01-03 20:21] LABS: ALANINE AMINOTRANSFERASE 19 U/L (12-78); ALBUMIN 4.1 g/dL (3.4-5.0); ALKALINE PHOSPHATASE 75 U/L (46-116); ASPARTATE AMINOTRANSFERASE 15 U/L (15-37); BILIRUBIN,TOTAL 0.7 mg/dL (0.1-1.0); TOTAL PROTEIN, SERUM 8.1 g/dL (6.4-8.2)
[2018-01-04] MEDS ORDERED: ZOLPIDEM TARTRATE 10 MG TABLET PO PRN (01:00)
[2018-01-04 08:29] VITALS: BP 101/72
[2018-01-04] MEDS: LORazepam 2 MG TABLET PO PRN (10:00)
[2018-01-04] MEDS: QUEtiapine FUMARATE 100 MG TABLET PO PRN (10:00)
[2018-01-04] MEDS ORDERED: PROMETHAZINE HCL 25 MG TABLET PO PRN (13:15)
[2018-01-04] MEDS ORDERED: MAGNESIUM HYDROXIDE SUSPENSION 30 ML UDCUP PO PRN (13:15)
[2018-01-04] MEDS ORDERED: HydrOXYzine PAMOATE 50 MG CAPSULE PO PRN (13:15)
[2018-01-04] MEDS ORDERED: GuaiFENesin/D-METHORPHAN [SUGAR-FREE] 200-20MG/10 ML SYRUP UDCUP PO PRN (13:15)
[2018-01-04] MEDS ORDERED: TUBERCULIN, PURIFIED PROTEIN DERIVATIVE 5 TU/0.1 ML SYG ID ONE (13:15)
[2018-01-04] MEDS ORDERED: ACETAMINOPHEN 325 MG TABLET PO PRN ×2 (13:15→16:15)
[2018-01-04] MEDS ORDERED: MAG HYDROX/AL HYDROX/SIMETH ES 30 ML SUSPENSION UDCUP PO PRN (13:15)
[2018-01-04] MEDS ORDERED: OLANZapine 5 MG RAPDIS TABLET PO PRN (13:15)
[2018-01-04] MEDS ORDERED: LOPERAMIDE HCL 2 MG CAPSULE PO PRN (13:15)
[2018-01-04] MEDS ORDERED: IBUPROFEN 400 MG TABLET PO PRN (16:15)
[2018-01-04] MEDS: THIAMINE HCL 100 MG TABLET PO SCH ×2 (17:00→21:17)
[2018-01-04 17:03] VITALS: BP 112/69
[2018-01-04] MEDS: OLANZapine 5 MG RAPDIS TABLET PO SCH (21:17)
[2018-01-05 06:26] VITALS: BP 108/64
[2018-01-05 08:22] VITALS: BP 100/58
[2018-01-05] MEDS: NALTREXONE HCL 50 MG TABLET PO SCH (08:49)
[2018-01-05] MEDS: FOLIC ACID 1 MG TABLET PO SCH (08:49)
[2018-01-05] MEDS: MULTIVITAMINS WITH MINERALS, THERAPEUTIC TABLET PO SCH (08:50)
[2018-01-05] MEDS: THIAMINE HCL 100 MG TABLET PO SCH ×2 (08:50→17:04)
[2018-01-05] MEDS ORDERED: FLUoxetine HCL 20 MG CAPSULE PO SCH (09:00)
[2018-01-05 10:31] LABS: CHOL/HDL RATIO 2.1 (3.9-5.7); FREE T4 (FREE THYROXINE) 0.92 ng/dL (0.76-1.46); THYROID STIMULATING HORMONE 0.54 uIU/mL (0.36-3.74)
[2018-01-05 12:30] VITALS: BP 110/68
[2018-01-05] MEDS: LORazepam 2 MG TABLET PO PRN (12:35)
[2018-01-05 16:05] VITALS: BP 107/71
[2018-01-05] MEDS: QUEtiapine FUMARATE 100 MG TABLET PO PRN (17:04)
[2018-01-05] MEDS ORDERED: OLANZapine 5 MG RAPDIS TABLET PO PRN (18:00)
[2018-01-05] MEDS: OLANZapine 5 MG RAPDIS TABLET PO SCH (21:00)
[2018-01-06 06:50] VITALS: BP 105/70
[2018-01-06] MEDS ORDERED: FLUoxetine HCL 20 MG CAPSULE PO SCH (09:00)
[2018-01-06] MEDS: NALTREXONE HCL 50 MG TABLET PO SCH (09:04)
[2018-01-06] MEDS: MULTIVITAMINS WITH MINERALS, THERAPEUTIC TABLET PO SCH (09:04)
[2018-01-06] MEDS: FOLIC ACID 1 MG TABLET PO SCH (09:04)
[2018-01-06] MEDS: THIAMINE HCL 100 MG TABLET PO SCH ×2 (09:04→16:54)
[2018-01-06 09:29] VITALS: BP 110/55
[2018-01-06 11:50] VITALS: BP 112/68
[2018-01-06] MEDS: LORazepam 2 MG TABLET PO PRN ×2 (11:58→16:09)
[2018-01-06] MEDS ORDERED: OLAN5TAB30 PO (16:03)
[2018-01-06] MEDS ORDERED: FLUO-191 PO (16:03)
[2018-01-06] MEDS ORDERED: NALT50TA PO (16:03)
[2018-01-06 16:26] VITALS: BP 99/69
== END 2018-01-06 18:00 | disposition home or self-care (01) | DRG 750 ==
LOC: EMS 16:18 → B3A 01-04 01:11
PROVIDERS: ADMIT Psychiatry & Neurology Psychiatry; ATTEND Psychiatry & Neurology Psychiatry
DX: F25.9 Schizoaffective disorder, unspecified (principal); R45.851 Suicidal ideations; Z91.19 Patient's noncompliance with other medical treatment and regimen; F10.10 Alcohol abuse, uncomplicated; G47.00 Insomnia, unspecified; K59.09 Other constipation; Z59.0 Homelessness; Z79.899 Other long term (current) drug therapy; Z71.41 Alcohol abuse counseling and surveillance of alcoholic
CPT/HCPCS: 84436; 84439; 84443; 99285; G0480

== ENCOUNTER 2018-06-01 18:57 | Inpatient (IN) | payer MEDICAID ==
[~2018-06-01] VITALS: Ht 160 cm; Wt 72.9 kg
[~2018-06-01 18:57] MED LIST changes: -BUSP10TA23 PO; -DSS100 PO; -LITH300C3 PO; +NALT50TA PO; -OLAN10TA6 PO; +OLAN5TAB30 PO
[2018-06-01 20:11] VITALS: BP 112/77
[2018-06-01 21:01] VITALS: BP 123/76
[2018-06-01] MEDS: ZOLPIDEM TARTRATE 10 MG TABLET PO PRN (21:02)
[2018-06-01] MEDS ORDERED: ONDANSETRON HCL 4 MG TABLET PO PRN (21:15)
[2018-06-01] MEDS ORDERED: GuaiFENesin/D-METHORPHAN [SUGAR-FREE] 200-20MG/10 ML SYRUP UDCUP PO PRN (21:15)
[2018-06-01] MEDS ORDERED: IBUPROFEN 400 MG TABLET PO PRN (21:15)
[2018-06-01] MEDS ORDERED: LOPERAMIDE HCL 2 MG CAPSULE PO PRN (21:15)
[2018-06-01] MEDS ORDERED: ACETAMINOPHEN 325 MG TABLET PO PRN (21:15)
[2018-06-01] MEDS ORDERED: MAG HYDROX/AL HYDROX/SIMETH ES 30 ML SUSPENSION UDCUP PO PRN (21:15)
[2018-06-01] MEDS ORDERED: CloNIDine HCL 0.1 MG TABLET PO PRN (21:15)
[2018-06-01] MEDS ORDERED: MAGNESIUM HYDROXIDE SUSPENSION 30 ML UDCUP PO PRN (21:15)
[2018-06-01] MEDS ORDERED: NICOTINE 14 MG/24 HOUR PATCH TD PRN (21:15)
[2018-06-01] MEDS ORDERED: PETROLATUM,WHITE 71 GM JELLY TP PRN (21:15)
[2018-06-01] MEDS ORDERED: ALBUTEROL SULFATE HFA 90 MCG/PUFF 8 GM INHALER IH PRN (21:15)
[2018-06-01] MEDS ORDERED: DOCUSATE SODIUM 100 MG CAPSULE PO PRN (21:15)
[2018-06-02 06:57] VITALS: BP 117/66
[2018-06-02 07:42] LABS: BASOPHILS % (AUTO) 0.7 % (0.0-2.0); EOSINOPHILS % (AUTO) 3.7 % (1.0-6.0); HEMATOCRIT 39.2 % (36-46); HEMOGLOBIN 13.5 g/dL (12.0-16.0); LYMPHOCYTES # (AUTO) 3.3 K/uL (1.0-4.8); LYMPHOCYTES % (AUTO) 31.7 % (22.0-44.0); MEAN CORPUSCULAR HEMOGLOBIN 32.2 pg (26.0-34.0); MEAN CORPUSCULAR HGB CONC 34.5 G/dL (31.0-37.0); MEAN CORPUSCULAR VOLUME 93 fL (80-100); MONOCYTES # (AUTO) 0.6 K/uL (0.1-1.0); MONOCYTES % (AUTO) 5.8 % (2.0-9.0); NEUTROPHILS # (AUTO) 6.1 K/uL (1.8-7.7); NEUTROPHILS % (AUTO) 58.1 % (40.0-70.0); PLATELET COUNT (AUTO) 276 K/uL (150-450); RED BLOOD CELL COUNT(AUTO) 4.21 MIL/uL (4.00-5.20); RED CELL DISTRIBUTION WIDTH 12.8 % (11.5-14.5)
[2018-06-02 08:00] LABS: HEMOGLOBIN A1C 4.9 % (4.5-6.2)
[2018-06-02 08:07] LABS: ALANINE AMINOTRANSFERASE 27 U/L (12-78); ALBUMIN 3.6 g/dL (3.4-5.0); ALKALINE PHOSPHATASE 81 U/L (46-116); ANION GAP 8 mmol/L (8-16); ASPARTATE AMINOTRANSFERASE 18 U/L (15-37); BILIRUBIN,TOTAL 0.5 mg/dL (0.1-1.0); CALCIUM, TOTAL 8.9 mg/dL (8.8-10.5); CARBON DIOXIDE 29 mmol/L (22-29); CHLORIDE 100 mmol/L (98-107); CHOL/HDL RATIO 2.1 (3.9-5.7); CHOLESTEROL 110 mg/dL (131-200); FREE T4 (FREE THYROXINE) 0.75 ng/dL (0.76-1.46); GLOMERULAR FILTR. RATE CALC > 60 mL/min (>60); GLUCOSE,RANDOM 83 mg/dL (70-110); HCG,QUANTITATIVE < 1 mIU/mL (0-6); HDL CHOLESTEROL 52 mg/dL (40-60); LDL CHOL (CALC.) 40 mg/dL (0-130); POTASSIUM 4.3 mmol/L (3.5-5.1); SODIUM SERUM 137 mmol/L (136-145); THYROID STIMULATING HORMONE 1.43 uIU/mL (0.36-3.74); TOTAL PROTEIN, SERUM 6.9 g/dL (6.4-8.2); TRIGLYCERIDES 89 mg/dL (15-150); UREA NITROGEN, BLOOD 7 mg/dL (7-18)
[2018-06-02 08:25] VITALS: BP 109/53
[2018-06-02] MEDS: LORazepam 2 MG TABLET PO PRN (11:18)
[2018-06-02] MEDS: HALOPERIDOL 5 MG TABLET PO PRN (11:18)
[2018-06-02 16:57] VITALS: BP 100/65
[2018-06-03 08:17] VITALS: BP 106/57
[2018-06-03] MEDS: LORazepam 2 MG TABLET PO PRN ×2 (09:27→16:42)
[2018-06-03 16:00] VITALS: BP 112/69
[2018-06-03] MEDS: LITHIUM CARBONATE 300 MG CAPSULE PO SCH (16:42)
[2018-06-03] MEDS: OLANZapine 10 MG RAPDIS TABLET PO SCH (20:24)
[2018-06-03] MEDS: ZOLPIDEM TARTRATE 10 MG TABLET PO PRN (21:28)
[2018-06-04 04:33] VITALS: BP 108/63
[2018-06-04 08:15] VITALS: BP 139/86
[2018-06-04] MEDS: HALOPERIDOL 5 MG TABLET PO PRN ×2 (09:25→23:07)
[2018-06-04] MEDS: LORazepam 2 MG TABLET PO PRN ×2 (09:25→23:07)
[2018-06-04] MEDS: LITHIUM CARBONATE 300 MG CAPSULE PO SCH ×2 (09:26→16:10)
[2018-06-04 17:23] VITALS: BP 116/65
[2018-06-04] MEDS: OLANZapine 10 MG RAPDIS TABLET PO SCH (20:30)
[2018-06-04 23:50] VITALS: BP 110/67
[2018-06-04] MEDS: ZOLPIDEM TARTRATE 10 MG TABLET PO PRN (23:54)
[2018-06-05 08:23] VITALS: BP 141/98
[2018-06-05] MEDS: LITHIUM CARBONATE 300 MG CAPSULE PO SCH ×2 (09:16→17:00)
[2018-06-05] MEDS: OLANZapine 10 MG RAPDIS TABLET PO SCH (20:47)
[2018-06-06 00:07] VITALS: BP 108/71
[2018-06-06 08:14] VITALS: BP 113/73
[2018-06-06] MEDS: LITHIUM CARBONATE 300 MG CAPSULE PO SCH ×2 (09:52→17:02)
[2018-06-06 16:14] VITALS: BP 116/78
[2018-06-06] MEDS: OLANZapine 10 MG RAPDIS TABLET PO SCH (21:10)
[2018-06-06] MEDS: HALOPERIDOL 5 MG TABLET PO PRN (23:34)
[2018-06-06] MEDS: LORazepam 2 MG TABLET PO PRN (23:34)
[2018-06-07] VITALS: BP 141/79
[2018-06-07] MEDS: ZOLPIDEM TARTRATE 10 MG TABLET PO PRN (01:38)
[2018-06-07] MEDS: LITHIUM CARBONATE 300 MG CAPSULE PO SCH ×2 (08:31→16:43)
[2018-06-07] MEDS: LORazepam 2 MG TABLET PO PRN (08:36)
[2018-06-07 08:45] VITALS: BP 108/66
[2018-06-07] MEDS ORDERED: LITH300C3 PO (15:50)
[2018-06-07] MEDS ORDERED: OLAN10TA6 PO (15:53)
[2018-06-07 16:27] VITALS: BP 115/69
== END 2018-06-07 17:30 | disposition home or self-care (01) | DRG 750 ==
LOC: B3A 19:50
PROVIDERS: ADMIT Psychiatry & Neurology Psychiatry; ATTEND Psychiatry & Neurology Psychiatry
DX: F25.9 Schizoaffective disorder, unspecified (principal); R45.851 Suicidal ideations; F41.9 Anxiety disorder, unspecified; F32.9 Major depressive disorder, single episode, unspecified; K59.00 Constipation, unspecified; F10.10 Alcohol abuse, uncomplicated; G47.00 Insomnia, unspecified; Z71.51 Drug abuse counseling and surveillance of drug abuser; Z71.41 Alcohol abuse counseling and surveillance of alcoholic
CPT/HCPCS: 83036; 84439; 84443

== ENCOUNTER 2018-06-13 12:14 | Inpatient (IN) | payer MEDICAID, OTHER ==
[~2018-06-13] VITALS: Ht 160 cm; Wt 75.4 kg
[~2018-06-13 12:14] MED LIST changes: -FLUO-191 PO; +LITH300C3 PO; -NALT50TA PO; +OLAN10TA6 PO; -OLAN5TAB30 PO
[2018-06-13] MEDS ORDERED: CLOZ25TA4 PO (13:24)
[2018-06-13] MEDS ORDERED: PALI117D IM (13:24)
[2018-06-13 13:45] LABS: BASOPHILS % (AUTO) 0.7 % (0.0-2.0); EOSINOPHILS % (AUTO) 2.3 % (1.0-6.0); HEMATOCRIT 40.3 % (36-46); HEMOGLOBIN 13.5 g/dL (12.0-16.0); LYMPHOCYTES # (AUTO) 3.1 K/uL (1.0-4.8); LYMPHOCYTES % (AUTO) 27.1 % (22.0-44.0); MEAN CORPUSCULAR HEMOGLOBIN 31.9 pg (26.0-34.0); MEAN CORPUSCULAR HGB CONC 33.6 G/dL (31.0-37.0); MEAN CORPUSCULAR VOLUME 95 fL (80-100); MONOCYTES # (AUTO) 0.7 K/uL (0.1-1.0); MONOCYTES % (AUTO) 6.3 % (2.0-9.0); NEUTROPHILS # (AUTO) 7.2 K/uL (1.8-7.7); NEUTROPHILS % (AUTO) 63.6 % (40.0-70.0); PLATELET COUNT (AUTO) 274 K/uL (150-450); RED BLOOD CELL COUNT(AUTO) 4.24 MIL/uL (4.00-5.20); RED CELL DISTRIBUTION WIDTH 12.8 % (11.5-14.5)
[2018-06-13 14:00] LABS: ANION GAP 7 mmol/L (8-16); CARBON DIOXIDE 33 mmol/L (22-29); CHLORIDE 103 mmol/L (98-107); CREATININE 0.63 mg/dL (0.60-1.30); GLOMERULAR FILTR. RATE CALC > 60 mL/min (>60); GLUCOSE,RANDOM 98 mg/dL (70-110); POTASSIUM 4.1 mmol/L (3.5-5.1); SODIUM SERUM 143 mmol/L (136-145); UREA NITROGEN, BLOOD 7 mg/dL (7-18)
[2018-06-13 14:06] LABS: ALANINE AMINOTRANSFERASE 35 U/L (12-78); ALBUMIN 3.6 g/dL (3.4-5.0); ALKALINE PHOSPHATASE 91 U/L (46-116); ASPARTATE AMINOTRANSFERASE 18 U/L (15-37); BILIRUBIN,TOTAL 0.2 mg/dL (0.1-1.0); TOTAL PROTEIN, SERUM 7.6 g/dL (6.4-8.2)
[2018-06-13 14:10] LABS: AMPHET/METH SCREEN,URINE NEGATIVE (NEGATIVE); BARBITURATE SCREEN, URINE NEGATIVE (NEGATIVE); BENZODIAZEPINES SCREEN,URINE NEGATIVE (NEGATIVE); CANNABINOID SCREEN,URINE NEGATIVE (NEGATIVE); COCAINE SCREEN,URINE NEGATIVE (NEGATIVE); METHADONE SCREEN, URINE NEGATIVE (NEGATIVE); OPIATE SCREEN,URINE NEGATIVE (NEGATIVE); PHENCYCLIDINE SCREEN,URINE NEGATIVE (NEGATIVE)
[2018-06-13] MEDS ORDERED: HALOPERIDOL 5 MG TABLET PO ONE (14:15)
[2018-06-13] MEDS ORDERED: LORazepam 2 MG TABLET PO ONE (14:15)
[2018-06-13 17:15] VITALS: BP 119/72
[2018-06-13] MEDS ORDERED: LOPERAMIDE HCL 2 MG CAPSULE PO PRN (17:30)
[2018-06-13] MEDS ORDERED: ACETAMINOPHEN 325 MG TABLET PO PRN (17:30)
[2018-06-13] MEDS ORDERED: CloNIDine HCL 0.1 MG TABLET PO PRN (17:30)
[2018-06-13] MEDS ORDERED: MAG HYDROX/AL HYDROX/SIMETH ES 30 ML SUSPENSION UDCUP PO PRN (17:30)
[2018-06-13] MEDS ORDERED: IBUPROFEN 400 MG TABLET PO PRN (17:30)
[2018-06-13] MEDS ORDERED: DOCUSATE SODIUM 100 MG CAPSULE PO PRN (17:30)
[2018-06-13] MEDS ORDERED: ALBUTEROL SULFATE HFA 90 MCG/PUFF 8 GM INHALER IH PRN (17:30)
[2018-06-13] MEDS ORDERED: MAGNESIUM HYDROXIDE SUSPENSION 30 ML UDCUP PO PRN (17:30)
[2018-06-13] MEDS ORDERED: ONDANSETRON HCL 4 MG TABLET PO PRN (17:30)
[2018-06-13] MEDS ORDERED: GuaiFENesin/D-METHORPHAN [SUGAR-FREE] 200-20MG/10 ML SYRUP UDCUP PO PRN (17:30)
[2018-06-13] MEDS: OLANZapine 10 MG RAPDIS TABLET PO SCH (21:00)
[2018-06-14 00:05] VITALS: BP 107/70
[2018-06-14 08:32] VITALS: BP 110/76
[2018-06-14] MEDS: LITHIUM CARBONATE 300 MG CAPSULE PO SCH ×2 (09:04→16:49)
[2018-06-14] MEDS: HALOPERIDOL 5 MG TABLET PO PRN (12:50)
[2018-06-14] MEDS: LORazepam 2 MG TABLET PO PRN (12:50)
[2018-06-14 16:00] VITALS: BP 114/83
[2018-06-14] MEDS: OLANZapine 10 MG RAPDIS TABLET PO SCH (20:19)
[2018-06-15 06:45] VITALS: BP 107/60
[2018-06-15 08:21] VITALS: BP 105/59
[2018-06-15] MEDS: LITHIUM CARBONATE 300 MG CAPSULE PO SCH ×2 (08:27→16:49)
[2018-06-15] MEDS: LORazepam 2 MG TABLET PO PRN (14:02)
[2018-06-15] MEDS: HALOPERIDOL 5 MG TABLET PO PRN ×2 (15:03→22:45)
[2018-06-15 16:39] VITALS: BP 110/68
[2018-06-15] MEDS: OLANZapine 10 MG RAPDIS TABLET PO SCH (20:54)
[2018-06-15] MEDS: ZOLPIDEM TARTRATE 10 MG TABLET PO PRN (22:45)
[2018-06-16] MEDS: LITHIUM CARBONATE 300 MG CAPSULE PO SCH ×2 (08:25→16:13)
[2018-06-16] MEDS: LORazepam 2 MG TABLET PO PRN (08:25)
[2018-06-16 08:43] VITALS: BP 106/59
[2018-06-16 16:08] VITALS: BP 103/60
[2018-06-16] MEDS: OLANZapine 10 MG RAPDIS TABLET PO SCH (20:29)
[2018-06-16] MEDS: ZOLPIDEM TARTRATE 10 MG TABLET PO PRN (21:22)
[2018-06-17 06:21] VITALS: BP 115/78
[2018-06-17 08:29] VITALS: BP 118/71
[2018-06-17] MEDS: LITHIUM CARBONATE 300 MG CAPSULE PO SCH ×2 (09:37→17:09)
[2018-06-17] MEDS: HALOPERIDOL 5 MG TABLET PO PRN (14:43)
[2018-06-17] MEDS: LORazepam 2 MG TABLET PO PRN (14:43)
[2018-06-17 19:07] VITALS: BP 128/75
[2018-06-17] MEDS: ZOLPIDEM TARTRATE 10 MG TABLET PO PRN (20:17)
[2018-06-17] MEDS: OLANZapine 10 MG RAPDIS TABLET PO SCH (20:18)
[2018-06-18 06:31] VITALS: BP 99/61
[2018-06-18] MEDS: LORazepam 2 MG TABLET PO PRN ×2 (08:11→16:14)
[2018-06-18] MEDS: HALOPERIDOL 5 MG TABLET PO PRN (08:11)
[2018-06-18] MEDS: LITHIUM CARBONATE 300 MG CAPSULE PO SCH ×2 (08:11→16:14)
[2018-06-18 16:15] VITALS: BP 112/69
[2018-06-18] MEDS: OLANZapine 10 MG RAPDIS TABLET PO SCH (20:04)
[2018-06-18] MEDS: ZOLPIDEM TARTRATE 10 MG TABLET PO PRN (20:05)
[2018-06-19 01:12] VITALS: BP 111/83
[2018-06-19] MEDS: LITHIUM CARBONATE 300 MG CAPSULE PO SCH ×2 (08:16→16:53)
[2018-06-19] MEDS: LORazepam 2 MG TABLET PO PRN (10:51)
[2018-06-19 16:11] VITALS: BP 122/77
[2018-06-19] MEDS: OLANZapine 10 MG RAPDIS TABLET PO SCH (20:52)
[2018-06-20 00:24] VITALS: BP 128/65
[2018-06-20 08:35] VITALS: BP 100/66
[2018-06-20] MEDS: LITHIUM CARBONATE 300 MG CAPSULE PO SCH ×2 (09:17→17:22)
[2018-06-20] MEDS: HALOPERIDOL 5 MG TABLET PO PRN ×2 (10:55→17:23)
[2018-06-20] MEDS: LORazepam 2 MG TABLET PO PRN ×2 (10:55→17:23)
[2018-06-20 16:58] VITALS: BP 103/68
[2018-06-20] MEDS: OLANZapine 10 MG RAPDIS TABLET PO SCH (21:07)
[2018-06-21 06:31] VITALS: BP 108/70
[2018-06-21] MEDS: LITHIUM CARBONATE 300 MG CAPSULE PO SCH ×2 (08:03→17:08)
[2018-06-21 08:18] VITALS: BP 107/71
[2018-06-21] MEDS: HALOPERIDOL 5 MG TABLET PO PRN ×2 (10:59→17:08)
[2018-06-21] MEDS: LORazepam 2 MG TABLET PO PRN ×2 (10:59→17:08)
[2018-06-21 16:26] VITALS: BP 115/67
[2018-06-21] MEDS: OLANZapine 10 MG RAPDIS TABLET PO SCH (20:49)
[2018-06-21] MEDS: ZOLPIDEM TARTRATE 10 MG TABLET PO PRN (21:56)
[2018-06-22 06:50] VITALS: BP 108/71
[2018-06-22] MEDS: LITHIUM CARBONATE 300 MG CAPSULE PO SCH ×2 (08:23→16:07)
[2018-06-22 08:32] LABS: BASOPHILS % (AUTO) 0.7 % (0.0-2.0); EOSINOPHILS % (AUTO) 2.9 % (1.0-6.0); HEMATOCRIT 38.8 % (36-46); HEMOGLOBIN 13.2 g/dL (12.0-16.0); LYMPHOCYTES # (AUTO) 2.9 K/uL (1.0-4.8); LYMPHOCYTES % (AUTO) 24.3 % (22.0-44.0); MEAN CORPUSCULAR HEMOGLOBIN 31.7 pg (26.0-34.0); MEAN CORPUSCULAR VOLUME 93 fL (80-100); MONOCYTES # (AUTO) 0.4 K/uL (0.1-1.0); MONOCYTES % (AUTO) 3.3 % (2.0-9.0); NEUTROPHILS # (AUTO) 8.2 K/uL (1.8-7.7); NEUTROPHILS % (AUTO) 68.8 % (40.0-70.0); PLATELET COUNT (AUTO) 261 K/uL (150-450); RED BLOOD CELL COUNT(AUTO) 4.16 MIL/uL (4.00-5.20); RED CELL DISTRIBUTION WIDTH 12.9 % (11.5-14.5)
[2018-06-22 08:34] VITALS: BP 107/55
[2018-06-22] MEDS ORDERED: OLAN10TA6 PO (13:58)
== END 2018-06-22 16:35 | disposition home or self-care (01) | DRG 750 ==
LOC: EMS 12:15 → B3A 14:17
PROVIDERS: ADMIT Psychiatry & Neurology Psychiatry; ATTEND Psychiatry & Neurology Psychiatry
DX: F20.0 Paranoid schizophrenia (principal); R45.851 Suicidal ideations; F31.9 Bipolar disorder, unspecified; G47.00 Insomnia, unspecified; K59.00 Constipation, unspecified; F17.200 Nicotine dependence, unspecified, uncomplicated; F10.10 Alcohol abuse, uncomplicated; D72.829 Elevated white blood cell count, unspecified; Z71.41 Alcohol abuse counseling and surveillance of alcoholic; Z28.21 Immunization not carried out because of patient refusal; Z91.5 Personal history of self-harm; Z71.51 Drug abuse counseling and surveillance of drug abuser
CPT/HCPCS: 87081; G0480

== ENCOUNTER 2019-10-24 18:00 | Inpatient (IN) | payer MEDICAID, OTHER ==
[~2019-10-24] VITALS: Ht 157.5 cm; Wt 68.1 kg
[2019-10-24] MEDS ORDERED: LORazepam 2 MG TABLET PO ONE (18:45)
[2019-10-24] MEDS ORDERED: HALOPERIDOL 5 MG TABLET PO ONE (18:45)
[2019-10-24 18:51] LABS: BASOPHILS % (AUTO) 0.4 % (0.0-2.0); EOSINOPHILS % (AUTO) 0 % (1.0-6.0); HEMATOCRIT 40.2 % (36-46); HEMOGLOBIN 13.2 g/dL (12.0-16.0); LYMPHOCYTES # (AUTO) 1.4 K/uL (1.0-4.8); LYMPHOCYTES % (AUTO) 6.7 % (22.0-44.0); MEAN CORPUSCULAR HEMOGLOBIN 30.6 pg (26.0-34.0); MEAN CORPUSCULAR HGB CONC 32.9 G/dL (31.0-37.0); MEAN CORPUSCULAR VOLUME 93 fL (80-100); MONOCYTES # (AUTO) 0.9 K/uL (0.1-1.0); MONOCYTES % (AUTO) 4.2 % (2.0-9.0); NEUTROPHILS # (AUTO) 18.9 K/uL (1.8-7.7); NEUTROPHILS % (AUTO) 88.7 % (40.0-70.0); PLATELET COUNT (AUTO) 295 K/uL (150-450); RED BLOOD CELL COUNT(AUTO) 4.32 MIL/uL (4.00-5.20); RED CELL DISTRIBUTION WIDTH 12.7 % (11.5-14.5)
[2019-10-24 19:00] LABS: ANION GAP 12 mmol/L (8-16); CARBON DIOXIDE 26 mmol/L (22-29); CHLORIDE 102 mmol/L (98-107); CREATININE 0.91 mg/dL (0.60-1.30); GLOMERULAR FILTR. RATE CALC > 60 mL/min (>60); GLUCOSE,RANDOM 115 mg/dL (70-110); POTASSIUM 3.4 mmol/L (3.5-5.1); SODIUM SERUM 140 mmol/L (136-145); UREA NITROGEN, BLOOD 5 mg/dL (7-18)
[2019-10-24 19:05] LABS: ALANINE AMINOTRANSFERASE 16 U/L (12-78); ALBUMIN 4.1 g/dL (3.4-5.0); ALKALINE PHOSPHATASE 87 U/L (46-116); ASPARTATE AMINOTRANSFERASE 11 U/L (15-37); BILIRUBIN,TOTAL 0.3 mg/dL (0.1-1.0); TOTAL PROTEIN, SERUM 7.5 g/dL (6.4-8.2)
[2019-10-24 19:18] LABS: LITHIUM < 0.20 mmol/L (0.60-1.20)
[2019-10-24 19:20] LABS: PLATELET MORPHOLOGY COMMENT NORMAL
[2019-10-24] MEDS ORDERED: ZOLPIDEM TARTRATE 10 MG TABLET PO PRN (21:45)
[2019-10-24] MEDS ORDERED: QUEtiapine FUMARATE 100 MG TABLET PO PRN (21:45)
[2019-10-24 22:02] VITALS: BP 136/87
[2019-10-25] MEDS: LORazepam 2 MG TABLET PO PRN (00:06)
[2019-10-25 00:08] VITALS: BP 133/88
[2019-10-25 08:04] LABS: CHOL/HDL RATIO 2.1 (3.9-5.7)
[2019-10-25 10:22] VITALS: BP 117/72
[2019-10-25] MEDS: DIVALPROEX SODIUM 500 MG DR TABLET PO SCH ×2 (10:29→20:25)
[2019-10-25] MEDS ORDERED: ALBUTEROL SULFATE HFA 90 MCG/PUFF 8 GM INHALER IH PRN (10:30)
[2019-10-25] MEDS ORDERED: MAG HYDROX/AL HYDROX/SIMETH ES 30 ML SUSPENSION UDCUP PO PRN (10:30)
[2019-10-25] MEDS ORDERED: CloNIDine HCL 0.1 MG TABLET PO PRN (10:30)
[2019-10-25] MEDS ORDERED: IBUPROFEN 400 MG TABLET PO PRN (10:30)
[2019-10-25] MEDS ORDERED: NICOTINE 14 MG/24 HOUR PATCH TD PRN (10:30)
[2019-10-25] MEDS ORDERED: DOCUSATE SODIUM 100 MG CAPSULE PO PRN (10:30)
[2019-10-25] MEDS ORDERED: ONDANSETRON HCL 4 MG TABLET PO PRN (10:30)
[2019-10-25] MEDS ORDERED: MAGNESIUM HYDROXIDE SUSPENSION 30 ML UDCUP PO PRN (10:30)
[2019-10-25] MEDS ORDERED: GuaiFENesin/D-METHORPHAN [SUGAR-FREE] 200-20MG/10 ML SYRUP UDCUP PO PRN (10:30)
[2019-10-25] MEDS ORDERED: ACETAMINOPHEN 325 MG TABLET PO PRN (10:30)
[2019-10-25] MEDS ORDERED: PETROLATUM,WHITE 28 GM JELLY TP PRN (10:30)
[2019-10-25] MEDS ORDERED: LOPERAMIDE HCL 2 MG CAPSULE PO PRN (10:30)
[2019-10-25 16:55] VITALS: BP 142/86
[2019-10-25] MEDS: OLANZapine 5 MG RAPDIS TABLET PO SCH (20:25)
[2019-10-26] MEDS: DIVALPROEX SODIUM 500 MG DR TABLET PO SCH ×2 (08:58→20:23)
[2019-10-26 10:23] VITALS: BP 105/57
[2019-10-26 16:00] VITALS: BP 91/50
[2019-10-26] MEDS: OLANZapine 5 MG RAPDIS TABLET PO SCH (20:23)
[2019-10-27 07:54] LABS: BASOPHILS % (AUTO) 0.6 % (0.0-2.0); EOSINOPHILS % (AUTO) 3.6 % (1.0-6.0); HEMATOCRIT 37.6 % (36-46); HEMOGLOBIN 12.4 g/dL (12.0-16.0); LYMPHOCYTES # (AUTO) 2.5 K/uL (1.0-4.8); LYMPHOCYTES % (AUTO) 34.3 % (22.0-44.0); MEAN CORPUSCULAR HEMOGLOBIN 30.9 pg (26.0-34.0); MEAN CORPUSCULAR HGB CONC 33.1 G/dL (31.0-37.0); MEAN CORPUSCULAR VOLUME 94 fL (80-100); MONOCYTES # (AUTO) 0.4 K/uL (0.1-1.0); NEUTROPHILS # (AUTO) 4.1 K/uL (1.8-7.7); NEUTROPHILS % (AUTO) 56.5 % (40.0-70.0); PLATELET COUNT (AUTO) 246 K/uL (150-450); RED BLOOD CELL COUNT(AUTO) 4.02 MIL/uL (4.00-5.20); RED CELL DISTRIBUTION WIDTH 12.8 % (11.5-14.5)
[2019-10-27] MEDS: DIVALPROEX SODIUM 500 MG DR TABLET PO SCH ×2 (09:08→20:06)
[2019-10-27] MEDS: LORazepam 2 MG TABLET PO PRN (14:34)
[2019-10-27 16:30] VITALS: BP 105/52
[2019-10-27] MEDS: OLANZapine 5 MG RAPDIS TABLET PO SCH (20:06)
[2019-10-28] MEDS: DIVALPROEX SODIUM 500 MG DR TABLET PO SCH ×2 (08:25→20:14)
[2019-10-28 12:12] VITALS: BP 108/67
[2019-10-28 15:55] VITALS: BP 111/72
[2019-10-28] MEDS: LORazepam 2 MG TABLET PO PRN (15:55)
[2019-10-28 16:55] VITALS: BP 108/65
[2019-10-28 19:35] VITALS: BP 115/75
[2019-10-28] MEDS: OLANZapine 5 MG RAPDIS TABLET PO SCH (20:13)
[2019-10-29 08:00] VITALS: BP 103/59
[2019-10-29] MEDS: DIVALPROEX SODIUM 500 MG DR TABLET PO SCH ×2 (08:16→20:21)
[2019-10-29] MEDS: LORazepam 2 MG TABLET PO PRN (08:16)
[2019-10-29 16:22] VITALS: BP 125/79
[2019-10-29] MEDS: OLANZapine 5 MG RAPDIS TABLET PO SCH (20:21)
[2019-10-30] MEDS: DIVALPROEX SODIUM 500 MG DR TABLET PO SCH (07:44)
[2019-10-30 08:00] VITALS: BP 132/76
[2019-10-30] MEDS ORDERED: DIVA-78 PO ×2 (09:24→09:47)
[2019-10-30] MEDS ORDERED: OLAN5TAB30 PO (09:24)
[2019-10-30] MEDS ORDERED: OLAN7.5T2 PO (09:48)
== END 2019-10-30 14:55 | disposition home or self-care (01) | DRG 885 ==
LOC: EMS 18:00 → 3EC 21:00
DX: F25.1 Schizoaffective disorder, depressive type (principal); R45.851 Suicidal ideations; D72.829 Elevated white blood cell count, unspecified; E87.6 Hypokalemia; F10.10 Alcohol abuse, uncomplicated; F31.9 Bipolar disorder, unspecified; R56.9 Unspecified convulsions; F17.210 Nicotine dependence, cigarettes, uncomplicated; F19.10 Other psychoactive substance abuse, uncomplicated; Z79.899 Other long term (current) drug therapy
CPT/HCPCS: G0480

== ENCOUNTER 2020-01-05 07:14 | Inpatient (IN) | payer MEDICAID, OTHER ==
[~2020-01-05] VITALS: Ht 162.6 cm; Wt 69.9 kg
[~2020-01-05 07:14] MED LIST changes: +DIVA-78 PO; -LITH300C3 PO; -OLAN10TA6 PO; +OLAN5TAB30 PO; +OLAN7.5T2 PO
[2020-01-05 08:33] LABS: BASOPHILS % (AUTO) 0.6 % (0.0-2.0); EOSINOPHILS % (AUTO) 1.5 % (1.0-6.0); HEMATOCRIT 41.5 % (36-46); HEMOGLOBIN 13.5 g/dL (12.0-16.0); LYMPHOCYTES # (AUTO) 2.3 K/uL (1.0-4.8); LYMPHOCYTES % (AUTO) 27.6 % (22.0-44.0); MEAN CORPUSCULAR HEMOGLOBIN 30.7 pg (26.0-34.0); MEAN CORPUSCULAR HGB CONC 32.6 G/dL (31.0-37.0); MEAN CORPUSCULAR VOLUME 94 fL (80-100); MONOCYTES # (AUTO) 0.7 K/uL (0.1-1.0); MONOCYTES % (AUTO) 8.7 % (2.0-9.0); NEUTROPHILS # (AUTO) 5.1 K/uL (1.8-7.7); NEUTROPHILS % (AUTO) 61.6 % (40.0-70.0); PLATELET COUNT (AUTO) 213 K/uL (150-450); RED BLOOD CELL COUNT(AUTO) 4.39 MIL/uL (4.00-5.20); RED CELL DISTRIBUTION WIDTH 13.7 % (11.5-14.5)
[2020-01-05 09:14] LABS: ANION GAP 10 mmol/L (8-16); CARBON DIOXIDE 29 mmol/L (22-29); CHLORIDE 103 mmol/L (98-107); CREATININE 1.03 mg/dL (0.60-1.30); GLOMERULAR FILTR. RATE CALC > 60 mL/min (>60); GLUCOSE,RANDOM 90 mg/dL (70-110); POTASSIUM 3.3 mmol/L (3.5-5.1); SODIUM SERUM 142 mmol/L (136-145); UREA NITROGEN, BLOOD 11 mg/dL (7-18)
[2020-01-05 09:16] LABS: ALANINE AMINOTRANSFERASE 23 U/L (12-78); ALBUMIN 3.8 g/dL (3.4-5.0); ALKALINE PHOSPHATASE 73 U/L (46-116); ASPARTATE AMINOTRANSFERASE 21 U/L (15-37); TOTAL PROTEIN, SERUM 7.5 g/dL (6.4-8.2); VALPROIC ACID 72 mcg/mL (50-100)
[2020-01-05] MEDS ORDERED: POTASSIUM CHLORIDE 20 MEQ ER TABLET PO ONE (10:15)
[2020-01-05] MEDS ORDERED: LORazepam 2 MG/ML VIAL IM ONE (10:45)
[2020-01-05] MEDS ORDERED: DiphenhydrAMINE HCL 50 MG/ML VIAL IM ONE (10:45)
[2020-01-05] MEDS ORDERED: HALOPERIDOL LACTATE 5 MG/ML VIAL IM ONE (10:45)
[2020-01-05] MEDS ORDERED: DiphenhydrAMINE HCL 25 MG CAPSULE PO ONE (11:00)
[2020-01-05] MEDS ORDERED: HALOPERIDOL 5 MG TABLET PO ONE (11:00)
[2020-01-05] MEDS ORDERED: HALOPERIDOL 5 MG TABLET PO PRN (15:15)
[2020-01-05] MEDS ORDERED: ZOLPIDEM TARTRATE 10 MG TABLET PO PRN (15:15)
[2020-01-05 20:27] VITALS: BP 112/75
[2020-01-06 02:59] VITALS: BP 120/70
[2020-01-06 08:19] VITALS: BP 108/71
[2020-01-06] MEDS ORDERED: NICOTINE 14 MG/24 HOUR PATCH TD SCH (09:00)
[2020-01-06] MEDS: DIVALPROEX SODIUM 500 MG DR TABLET PO SCH ×2 (09:13→20:37)
[2020-01-06 09:18] LABS: FREE T4 (FREE THYROXINE) 1.21 ng/dL (0.76-1.46); THYROID STIMULATING HORMONE 0.6 uIU/mL (0.36-3.74)
[2020-01-06] MEDS: NICOTINE 14 MG/24 HOUR PATCH TD SCH (09:18)
[2020-01-06] MEDS: LORazepam 2 MG TABLET PO PRN (09:25)
[2020-01-06] MEDS ORDERED: CloNIDine HCL 0.1 MG TABLET PO PRN (11:15)
[2020-01-06] MEDS ORDERED: GuaiFENesin/D-METHORPHAN [SUGAR-FREE] 200-20MG/10 ML SYRUP UDCUP PO PRN (11:15)
[2020-01-06] MEDS ORDERED: DOCUSATE SODIUM 100 MG CAPSULE PO PRN (11:15)
[2020-01-06] MEDS ORDERED: POTASSIUM CHLORIDE 20 MEQ ER TABLET PO ONE (11:15)
[2020-01-06] MEDS ORDERED: MAGNESIUM HYDROXIDE SUSPENSION 30 ML UDCUP PO PRN (11:15)
[2020-01-06] MEDS ORDERED: LOPERAMIDE HCL 2 MG CAPSULE PO PRN (11:15)
[2020-01-06] MEDS ORDERED: NICOTINE 14 MG/24 HOUR PATCH TD PRN (11:15)
[2020-01-06] MEDS ORDERED: IBUPROFEN 400 MG TABLET PO PRN (11:15)
[2020-01-06] MEDS ORDERED: ALBUTEROL SULFATE HFA 90 MCG/PUFF 8 GM INHALER IH PRN (11:15)
[2020-01-06] MEDS ORDERED: PETROLATUM,WHITE 28 GM JELLY TP PRN (11:15)
[2020-01-06] MEDS ORDERED: ACETAMINOPHEN 325 MG TABLET PO PRN (11:15)
[2020-01-06] MEDS ORDERED: MAG HYDROX/AL HYDROX/SIMETH ES 30 ML SUSPENSION UDCUP PO PRN (11:15)
[2020-01-06] MEDS ORDERED: ONDANSETRON HCL 4 MG TABLET PO PRN (11:15)
[2020-01-06 16:10] VITALS: BP 108/68
[2020-01-06] MEDS: OLANZapine 5 MG RAPDIS TABLET PO SCH (20:44)
[2020-01-06] MEDS ORDERED: OLANZapine 5 MG RAPDIS TABLET PO SCH (21:00)
[2020-01-07 01:40] VITALS: BP 101/74
[2020-01-07 08:20] VITALS: BP 110/63
[2020-01-07] MEDS: LORazepam 2 MG TABLET PO PRN (08:41)
[2020-01-07] MEDS: MULTIVITAMINS, THERAPEUTIC TABLET PO SCH (08:41)
[2020-01-07] MEDS: DIVALPROEX SODIUM 500 MG DR TABLET PO SCH ×2 (08:41→20:52)
[2020-01-07] MEDS: FOLIC ACID 1 MG TABLET PO SCH (08:41)
[2020-01-07] MEDS: THIAMINE 100 MG TABLET PO SCH (08:42)
[2020-01-07] MEDS: NICOTINE 14 MG/24 HOUR PATCH TD SCH (08:42)
[2020-01-07 16:00] VITALS: BP 100/60
[2020-01-07] MEDS: OLANZapine 5 MG RAPDIS TABLET PO SCH (20:52)
[2020-01-08 03:52] VITALS: BP 112/68
[2020-01-08 08:43] VITALS: BP 100/58
[2020-01-08] MEDS: MULTIVITAMINS, THERAPEUTIC TABLET PO SCH (08:54)
[2020-01-08] MEDS: FOLIC ACID 1 MG TABLET PO SCH (08:55)
[2020-01-08] MEDS: DIVALPROEX SODIUM 500 MG DR TABLET PO SCH ×2 (08:55→20:12)
[2020-01-08] MEDS: THIAMINE 100 MG TABLET PO SCH (08:55)
[2020-01-08] MEDS: NICOTINE 14 MG/24 HOUR PATCH TD SCH (08:58)
[2020-01-08 16:08] VITALS: BP 108/63
[2020-01-08 16:38] VITALS: BP 108/63
[2020-01-08] MEDS: LORazepam 2 MG TABLET PO PRN (16:38)
[2020-01-08] MEDS: OLANZapine 5 MG RAPDIS TABLET PO SCH (20:12)
[2020-01-09 04:35] VITALS: BP 105/60
[2020-01-09 08:29] VITALS: BP 103/62
[2020-01-09] MEDS: NICOTINE 14 MG/24 HOUR PATCH TD SCH (08:34)
[2020-01-09] MEDS: DIVALPROEX SODIUM 500 MG DR TABLET PO SCH ×2 (08:34→20:56)
[2020-01-09] MEDS: THIAMINE 100 MG TABLET PO SCH (08:34)
[2020-01-09] MEDS: MULTIVITAMINS, THERAPEUTIC TABLET PO SCH (08:34)
[2020-01-09] MEDS: FOLIC ACID 1 MG TABLET PO SCH (08:34)
[2020-01-09 16:28] VITALS: BP 101/66
[2020-01-09] MEDS: OLANZapine 5 MG RAPDIS TABLET PO SCH (20:56)
[2020-01-10 06:09] VITALS: BP 100/59
[2020-01-10 08:10] VITALS: BP 109/64
[2020-01-10] MEDS: THIAMINE 100 MG TABLET PO SCH (08:34)
[2020-01-10] MEDS: NICOTINE 14 MG/24 HOUR PATCH TD SCH (08:34)
[2020-01-10] MEDS: DIVALPROEX SODIUM 500 MG DR TABLET PO SCH (08:34)
[2020-01-10] MEDS: FOLIC ACID 1 MG TABLET PO SCH (08:34)
[2020-01-10] MEDS: MULTIVITAMINS, THERAPEUTIC TABLET PO SCH (08:34)
[2020-01-10 09:11] LABS: CHOL/HDL RATIO 2.3 (3.9-5.7); POTASSIUM 4.2 mmol/L (3.5-5.1)
[2020-01-10] MEDS: LORazepam 2 MG TABLET PO PRN (10:41)
[2020-01-10 16:08] VITALS: BP 100/61
== END 2020-01-10 16:25 | disposition home or self-care (01) | DRG 750 ==
LOC: EMS 07:14 → B3A 20:55
DX: F25.1 Schizoaffective disorder, depressive type (principal); R45.851 Suicidal ideations; G40.909 Epilepsy, unspecified, not intractable, without status epilepticus; Z91.5 Personal history of self-harm; F15.10 Other stimulant abuse, uncomplicated; F10.10 Alcohol abuse, uncomplicated; Y90.9 Presence of alcohol in blood, level not specified; F32.9 Major depressive disorder, single episode, unspecified; F41.9 Anxiety disorder, unspecified; F17.210 Nicotine dependence, cigarettes, uncomplicated; K59.00 Constipation, unspecified; E87.6 Hypokalemia; F19.10 Other psychoactive substance abuse, uncomplicated
CPT/HCPCS: 83036; 84132; 84439; 84443; G0480

== ENCOUNTER 2020-01-22 07:38 | Inpatient (IN) | payer MEDICAID, OTHER ==
[~2020-01-22] VITALS: Ht 162.6 cm; Wt 69.9 kg
[~2020-01-22 07:38] MED LIST changes: -OLAN7.5T2 PO
[2020-01-22 08:13] LABS: BASOPHILS % (AUTO) 1.1 % (0.0-2.0); EOSINOPHILS % (AUTO) 8.6 % (1.0-6.0); HEMATOCRIT 38.3 % (36-46); LYMPHOCYTES # (AUTO) 3.2 K/uL (1.0-4.8); LYMPHOCYTES % (AUTO) 31.1 % (22.0-44.0); MEAN CORPUSCULAR HEMOGLOBIN 32.4 pg (26.0-34.0); MEAN CORPUSCULAR HGB CONC 34.1 G/dL (31.0-37.0); MEAN CORPUSCULAR VOLUME 95 fL (80-100); MONOCYTES # (AUTO) 0.8 K/uL (0.1-1.0); MONOCYTES % (AUTO) 7.4 % (2.0-9.0); NEUTROPHILS # (AUTO) 5.3 K/uL (1.8-7.7); NEUTROPHILS % (AUTO) 51.8 % (40.0-70.0); PLATELET COUNT (AUTO) 255 K/uL (150-450); RED BLOOD CELL COUNT(AUTO) 4.03 MIL/uL (4.00-5.20); RED CELL DISTRIBUTION WIDTH 14.5 % (11.5-14.5)
[2020-01-22 08:28] LABS: ANION GAP 14 mmol/L (8-16); CALCIUM, TOTAL 8.7 mg/dL (8.8-10.5); CARBON DIOXIDE 25 mmol/L (22-29); CHLORIDE 102 mmol/L (98-107); CREATININE 0.77 mg/dL (0.60-1.30); GLOMERULAR FILTR. RATE CALC > 60 mL/min (>60); GLUCOSE,RANDOM 73 mg/dL (70-110); POTASSIUM 3.7 mmol/L (3.5-5.1); SODIUM SERUM 141 mmol/L (136-145); UREA NITROGEN, BLOOD 8 mg/dL (7-18)
[2020-01-22 08:38] LABS: ALANINE AMINOTRANSFERASE 33 U/L (12-78); ALBUMIN 3.8 g/dL (3.4-5.0); ALKALINE PHOSPHATASE 68 U/L (46-116); ASPARTATE AMINOTRANSFERASE 57 U/L (15-37); BILIRUBIN,TOTAL 0.6 mg/dL (0.1-1.0); TOTAL PROTEIN, SERUM 7.7 g/dL (6.4-8.2); VALPROIC ACID 43 mcg/mL (50-100)
[2020-01-22] MEDS ORDERED: ZOLPIDEM TARTRATE 10 MG TABLET PO PRN (10:15)
[2020-01-22] MEDS ORDERED: PNEUMOCOCCAL VACCINE POLYVALENT 0.5 ML VIAL [PPSV23] IM ONE (10:30)
[2020-01-22 16:13] VITALS: BP 102/68
[2020-01-22] MEDS: HALOPERIDOL 5 MG TABLET PO PRN (16:30)
[2020-01-23 01:53] VITALS: BP 106/75
[2020-01-23] MEDS ORDERED: LOPERAMIDE HCL 2 MG CAPSULE PO PRN (07:30)
[2020-01-23] MEDS ORDERED: ACETAMINOPHEN 325 MG TABLET PO PRN (07:30)
[2020-01-23] MEDS ORDERED: CloNIDine HCL 0.1 MG TABLET PO PRN (07:30)
[2020-01-23] MEDS ORDERED: IBUPROFEN 400 MG TABLET PO PRN (07:30)
[2020-01-23] MEDS ORDERED: PETROLATUM,WHITE 28 GM JELLY TP PRN (07:30)
[2020-01-23] MEDS ORDERED: MAG HYDROX/AL HYDROX/SIMETH ES 30 ML SUSPENSION UDCUP PO PRN (07:30)
[2020-01-23] MEDS ORDERED: ONDANSETRON HCL 4 MG TABLET PO PRN (07:30)
[2020-01-23] MEDS ORDERED: DOCUSATE SODIUM 100 MG CAPSULE PO PRN (07:30)
[2020-01-23] MEDS ORDERED: MAGNESIUM HYDROXIDE SUSPENSION 30 ML UDCUP PO PRN (07:30)
[2020-01-23] MEDS ORDERED: ALBUTEROL SULFATE HFA 90 MCG/PUFF 8 GM INHALER IH PRN (07:30)
[2020-01-23] MEDS ORDERED: GuaiFENesin/D-METHORPHAN [SUGAR-FREE] 200-20MG/10 ML SYRUP UDCUP PO PRN (07:30)
[2020-01-23 08:13] VITALS: BP 113/63
[2020-01-23] MEDS: DIVALPROEX SODIUM 500 MG DR TABLET PO SCH ×2 (14:02→20:33)
[2020-01-23 16:20] VITALS: BP 125/60
[2020-01-23] MEDS: BACITRACIN 28.4 GM OINTMENT TP SCH (17:00)
[2020-01-23] MEDS: LORazepam 2 MG TABLET PO PRN (17:04)
[2020-01-23] MEDS: OLANZapine 7.5 MG TABLET PO SCH (20:33)
[2020-01-24 05:04] VITALS: BP 125/68
[2020-01-24 08:21] VITALS: BP 98/56
[2020-01-24] MEDS: DIVALPROEX SODIUM 500 MG DR TABLET PO SCH ×2 (08:25→20:14)
[2020-01-24] MEDS: BACITRACIN 28.4 GM OINTMENT TP SCH ×2 (08:25→17:33)
[2020-01-24 16:17] VITALS: BP 107/64
[2020-01-24] MEDS: OLANZapine 7.5 MG TABLET PO SCH (20:14)
[2020-01-25 01:44] VITALS: BP 104/74
[2020-01-25 08:23] VITALS: BP 103/58
[2020-01-25] MEDS: DIVALPROEX SODIUM 500 MG DR TABLET PO SCH ×2 (08:28→20:42)
[2020-01-25] MEDS: BACITRACIN 28.4 GM OINTMENT TP SCH ×2 (08:28→17:33)
[2020-01-25 16:11] VITALS: BP 101/63
[2020-01-25] MEDS: NICOTINE 14 MG/24 HOUR PATCH TD PRN (17:34)
[2020-01-25] MEDS: OLANZapine 7.5 MG TABLET PO SCH (20:42)
[2020-01-26 04:49] VITALS: BP 100/73
[2020-01-26 08:20] VITALS: BP 77/95
[2020-01-26] MEDS: BACITRACIN 28.4 GM OINTMENT TP SCH ×2 (08:47→16:38)
[2020-01-26] MEDS: DIVALPROEX SODIUM 500 MG DR TABLET PO SCH ×2 (08:47→20:45)
[2020-01-26 10:10] VITALS: BP 112/68
[2020-01-26] MEDS: LORazepam 2 MG TABLET PO PRN (10:12)
[2020-01-26] MEDS: HALOPERIDOL 5 MG TABLET PO PRN (11:01)
[2020-01-26 16:05] VITALS: BP 108/64
[2020-01-26] MEDS: OLANZapine 7.5 MG TABLET PO SCH (20:45)
[2020-01-27] MEDS: BACITRACIN 28.4 GM OINTMENT TP SCH (08:30)
[2020-01-27] MEDS: DIVALPROEX SODIUM 500 MG DR TABLET PO SCH (08:30)
[2020-01-27 08:43] VITALS: BP 90/60
[2020-01-27] MEDS: NICOTINE 14 MG/24 HOUR PATCH TD PRN (13:32)
== END 2020-01-27 15:45 | disposition home or self-care (01) | DRG 750 ==
LOC: EMS 07:41 → B3A 10:52
DX: F25.1 Schizoaffective disorder, depressive type (principal); R45.851 Suicidal ideations; F15.20 Other stimulant dependence, uncomplicated; G40.89 Other seizures; F31.9 Bipolar disorder, unspecified; F17.210 Nicotine dependence, cigarettes, uncomplicated; F41.9 Anxiety disorder, unspecified; R74.0 Nonspecific elevation of levels of transaminase and lactic acid dehydrogenase [LDH]; F10.10 Alcohol abuse, uncomplicated; Z79.899 Other long term (current) drug therapy; Z59.0 Homelessness
CPT/HCPCS: 87081; G0480

== ENCOUNTER 2020-02-01 14:32 | Inpatient (IN) | payer MEDICAID, OTHER ==
[~2020-02-01] VITALS: Ht 160 cm; Wt 72.1 kg
[~2020-02-01 14:32] MED LIST changes: +DIVA-112 PO; -DIVA-78 PO
[2020-02-01 17:29] LABS: BASOPHILS % (AUTO) 0.7 % (0.0-2.0); EOSINOPHILS % (AUTO) 1.2 % (1.0-6.0); HEMATOCRIT 38.1 % (36-46); HEMOGLOBIN 12.9 g/dL (12.0-16.0); LYMPHOCYTES % (AUTO) 23.6 % (22.0-44.0); MEAN CORPUSCULAR HEMOGLOBIN 32.2 pg (26.0-34.0); MEAN CORPUSCULAR HGB CONC 33.7 G/dL (31.0-37.0); MEAN CORPUSCULAR VOLUME 96 fL (80-100); MONOCYTES # (AUTO) 0.7 K/uL (0.1-1.0); MONOCYTES % (AUTO) 8.3 % (2.0-9.0); NEUTROPHILS # (AUTO) 5.6 K/uL (1.8-7.7); NEUTROPHILS % (AUTO) 66.2 % (40.0-70.0); PLATELET COUNT (AUTO) 180 K/uL (150-450); RED BLOOD CELL COUNT(AUTO) 3.99 MIL/uL (4.00-5.20); RED CELL DISTRIBUTION WIDTH 14.1 % (11.5-14.5)
[2020-02-01 17:34] LABS: ANION GAP 11 mmol/L (8-16); CALCIUM, TOTAL 8.8 mg/dL (8.8-10.5); CARBON DIOXIDE 28 mmol/L (22-29); CHLORIDE 103 mmol/L (98-107); CREATININE 0.98 mg/dL (0.60-1.30); GLOMERULAR FILTR. RATE CALC > 60 mL/min (>60); GLUCOSE,RANDOM 95 mg/dL (70-110); POTASSIUM 3.4 mmol/L (3.5-5.1); SODIUM SERUM 142 mmol/L (136-145); UREA NITROGEN, BLOOD 14 mg/dL (7-18)
[2020-02-01 17:45] LABS: ALANINE AMINOTRANSFERASE 34 U/L (12-78); ALBUMIN 3.9 g/dL (3.4-5.0); ALKALINE PHOSPHATASE 73 U/L (46-116); ASPARTATE AMINOTRANSFERASE 25 U/L (15-37); BILIRUBIN,TOTAL 1.3 mg/dL (0.1-1.0); HCG,QUANTITATIVE < 1 mIU/mL (0-6); TOTAL PROTEIN, SERUM 7.7 g/dL (6.4-8.2); VALPROIC ACID 27 mcg/mL (50-100)
[2020-02-01] MEDS ORDERED: LORazepam 2 MG/ML VIAL IM ONE (18:00)
[2020-02-01] MEDS ORDERED: HALOPERIDOL 5 MG TABLET PO PRN (18:00)
[2020-02-01] MEDS ORDERED: DiphenhydrAMINE HCL 50 MG/ML VIAL IM ONE (18:00)
[2020-02-01] MEDS ORDERED: ZOLPIDEM TARTRATE 10 MG TABLET PO PRN (18:00)
[2020-02-01] MEDS ORDERED: POTASSIUM CHLORIDE 10% 40 MEQ/30 ML LIQUID UDCUP PO ONE (18:00)
[2020-02-01] MEDS ORDERED: HALOPERIDOL LACTATE 5 MG/ML VIAL IM ONE (18:00)
[2020-02-01] MEDS ORDERED: POTASSIUM CHLORIDE 20 MEQ ER TABLET PO ONE (18:45)
[2020-02-01] MEDS ORDERED: NICOTINE 14 MG/24 HOUR PATCH TD PRN (22:00)
[2020-02-01 22:04] VITALS: BP 104/73
[2020-02-02 05:08] VITALS: BP 103/74
[2020-02-02 08:16] VITALS: BP 119/78
[2020-02-02] MEDS ORDERED: NICOTINE 14 MG/24 HOUR PATCH TD PRN (09:15)
[2020-02-02] MEDS ORDERED: CloNIDine HCL 0.1 MG TABLET PO PRN (09:15)
[2020-02-02] MEDS ORDERED: DOCUSATE SODIUM 100 MG CAPSULE PO PRN (09:15)
[2020-02-02] MEDS ORDERED: IBUPROFEN 400 MG TABLET PO PRN (09:15)
[2020-02-02] MEDS ORDERED: ONDANSETRON HCL 4 MG TABLET PO PRN (09:15)
[2020-02-02] MEDS ORDERED: GuaiFENesin/D-METHORPHAN [SUGAR-FREE] 200-20MG/10 ML SYRUP UDCUP PO PRN (09:15)
[2020-02-02] MEDS ORDERED: ALBUTEROL SULFATE HFA 90 MCG/PUFF 8 GM INHALER IH PRN (09:15)
[2020-02-02] MEDS ORDERED: ACETAMINOPHEN 325 MG TABLET PO PRN (09:15)
[2020-02-02] MEDS ORDERED: MAG HYDROX/AL HYDROX/SIMETH ES 30 ML SUSPENSION UDCUP PO PRN (09:15)
[2020-02-02] MEDS ORDERED: PETROLATUM,WHITE 28 GM JELLY TP PRN (09:15)
[2020-02-02] MEDS ORDERED: MAGNESIUM HYDROXIDE SUSPENSION 30 ML UDCUP PO PRN (09:15)
[2020-02-02] MEDS ORDERED: LOPERAMIDE HCL 2 MG CAPSULE PO PRN (09:15)
[2020-02-02] MEDS: DIVALPROEX SODIUM 500 MG DR TABLET PO SCH ×2 (12:30→21:07)
[2020-02-02 16:00] VITALS: BP 119/62
[2020-02-02] MEDS: OLANZapine 5 MG RAPDIS TABLET PO SCH (21:07)
[2020-02-03 05:25] VITALS: BP 97/72
[2020-02-03] MEDS: DIVALPROEX SODIUM 500 MG DR TABLET PO SCH ×2 (09:16→20:37)
[2020-02-03] MEDS: OLANZapine 5 MG RAPDIS TABLET PO SCH (20:37)
[2020-02-04] VITALS: BP 123/69
[2020-02-04] MEDS: DIVALPROEX SODIUM 500 MG DR TABLET PO SCH ×2 (08:15→20:10)
[2020-02-04] MEDS: LORazepam 2 MG TABLET PO PRN (08:17)
[2020-02-04 16:30] VITALS: BP 104/68
[2020-02-04] MEDS: OLANZapine 5 MG RAPDIS TABLET PO SCH (20:10)
[2020-02-05] VITALS: BP 120/72
[2020-02-05] MEDS: DIVALPROEX SODIUM 500 MG DR TABLET PO SCH ×2 (08:08→20:13)
[2020-02-05 16:23] VITALS: BP 116/84
[2020-02-05] MEDS: OLANZapine 5 MG RAPDIS TABLET PO SCH (20:13)
[2020-02-06 05:27] VITALS: BP 106/62
[2020-02-06] MEDS: DIVALPROEX SODIUM 500 MG DR TABLET PO SCH ×2 (09:05→20:36)
[2020-02-06] MEDS: LORazepam 2 MG TABLET PO PRN ×2 (11:00→19:43)
[2020-02-06 17:46] VITALS: BP 114/70
[2020-02-06] MEDS: OLANZapine 5 MG RAPDIS TABLET PO SCH (20:35)
[2020-02-07] MEDS: DIVALPROEX SODIUM 500 MG DR TABLET PO SCH ×2 (08:43→20:38)
[2020-02-07 09:46] VITALS: BP 103/53
[2020-02-07 13:10] VITALS: BP 110/68
[2020-02-07] MEDS: LORazepam 2 MG TABLET PO PRN ×2 (13:13→17:38)
[2020-02-07 16:03] VITALS: BP 136/67
[2020-02-07] MEDS: OLANZapine 5 MG RAPDIS TABLET PO SCH (20:38)
[2020-02-08 02:09] VITALS: BP 108/70
[2020-02-08 08:03] VITALS: BP 114/66
[2020-02-08] MEDS: DIVALPROEX SODIUM 500 MG DR TABLET PO SCH (08:15)
[2020-02-08] MEDS ORDERED: MULTIVITAMINS WITH MINERALS, THERAPEUTIC TABLET PO SCH (09:00)
== END 2020-02-08 13:00 | disposition home or self-care (01) | DRG 750 ==
LOC: EMS 14:34 → B3A 19:30
DX: F25.0 Schizoaffective disorder, bipolar type (principal); R45.851 Suicidal ideations; F15.20 Other stimulant dependence, uncomplicated; G40.909 Epilepsy, unspecified, not intractable, without status epilepticus; Z91.5 Personal history of self-harm; F32.9 Major depressive disorder, single episode, unspecified; E87.6 Hypokalemia; F19.10 Other psychoactive substance abuse, uncomplicated; F10.239 Alcohol dependence with withdrawal, unspecified; F41.9 Anxiety disorder, unspecified; Y90.9 Presence of alcohol in blood, level not specified; F17.210 Nicotine dependence, cigarettes, uncomplicated
CPT/HCPCS: 84132; 87081; G0480; J1200; J1630; J2060

== ENCOUNTER 2020-02-11 14:47 | Inpatient (IN) | payer MEDICAID ==
[~2020-02-11] VITALS: Ht 152.4 cm; Wt 70.9 kg
[2020-02-11 21:31] VITALS: BP 112/71
[2020-02-12 05:26] VITALS: BP 104/68
[2020-02-12 07:50] LABS: BASOPHILS % (AUTO) 0.5 % (0.0-2.0); EOSINOPHILS % (AUTO) 13.3 % (1.0-6.0); HEMATOCRIT 34.6 % (36-46); HEMOGLOBIN 11.6 g/dL (12.0-16.0); LYMPHOCYTES # (AUTO) 2.7 K/uL (1.0-4.8); MEAN CORPUSCULAR HEMOGLOBIN 32.6 pg (26.0-34.0); MEAN CORPUSCULAR HGB CONC 33.6 G/dL (31.0-37.0); MEAN CORPUSCULAR VOLUME 97 fL (80-100); MONOCYTES # (AUTO) 0.6 K/uL (0.1-1.0); MONOCYTES % (AUTO) 8.6 % (2.0-9.0); NEUTROPHILS # (AUTO) 2.4 K/uL (1.8-7.7); NEUTROPHILS % (AUTO) 36.6 % (40.0-70.0); PLATELET COUNT (AUTO) 203 K/uL (150-450); RED BLOOD CELL COUNT(AUTO) 3.56 MIL/uL (4.00-5.20); RED CELL DISTRIBUTION WIDTH 14.5 % (11.5-14.5)
[2020-02-12 08:01] LABS: ALANINE AMINOTRANSFERASE 26 U/L (12-78); ALBUMIN 2.9 g/dL (3.4-5.0); ALKALINE PHOSPHATASE 61 U/L (46-116); ANION GAP 4 mmol/L (8-16); ASPARTATE AMINOTRANSFERASE 17 U/L (15-37); BILIRUBIN,TOTAL 0.3 mg/dL (0.1-1.0); CARBON DIOXIDE 33 mmol/L (22-29); CHLORIDE 104 mmol/L (98-107); CHOL/HDL RATIO 1.9 (3.9-5.7); CHOLESTEROL 97 mg/dL (131-200); CREATININE 0.79 mg/dL (0.60-1.30); GLOMERULAR FILTR. RATE CALC > 60 mL/min (>60); GLUCOSE,RANDOM 80 mg/dL (70-110); HCG,QUANTITATIVE 1 mIU/mL (0-6); HDL CHOLESTEROL 50 mg/dL (40-60); LDL CHOL (CALC.) 38 mg/dL (0-130); POTASSIUM 4.4 mmol/L (3.5-5.1); SODIUM SERUM 141 mmol/L (136-145); THYROID STIMULATING HORMONE 0.59 uIU/mL (0.36-3.74); TOTAL PROTEIN, SERUM 6.2 g/dL (6.4-8.2); TRIGLYCERIDES 46 mg/dL (15-150); UREA NITROGEN, BLOOD 15 mg/dL (7-18)
[2020-02-12 08:17] VITALS: BP 122/78
[2020-02-12] MEDS: DIVALPROEX SODIUM 500 MG DR TABLET PO SCH ×2 (10:24→21:35)
[2020-02-12] MEDS: LORazepam 2 MG TABLET PO PRN (13:50)
[2020-02-12 16:06] VITALS: BP 100/59
[2020-02-12] MEDS: OLANZapine 10 MG RAPDIS TABLET PO SCH (21:35)
[2020-02-13 02:49] VITALS: BP 104/62
[2020-02-13 08:11] LABS: AMPHET/METH SCREEN,URINE NEGATIVE (NEGATIVE); BARBITURATE SCREEN, URINE NEGATIVE (NEGATIVE); BENZODIAZEPINES SCREEN,URINE NEGATIVE (NEGATIVE); CANNABINOID SCREEN,URINE NEGATIVE (NEGATIVE); COCAINE SCREEN,URINE NEGATIVE (NEGATIVE); METHADONE SCREEN, URINE NEGATIVE (NEGATIVE); OPIATE SCREEN,URINE NEGATIVE (NEGATIVE)
[2020-02-13 08:14] LABS: APPEARANCE,URINE CLOUDY (CLEAR); BILIRUBIN,URINE NEGATIVE (NEGATIVE); GLUCOSE, URINE (UA) NEGATIVE (NEGATIVE); KETONES,URINE NEGATIVE (NEGATIVE); LEUKOCYTE ESTERASE ,URINE MODERATE (NEGATIVE); NITRATE,URINE NEGATIVE (NEGATIVE); OCCULT BLOOD,URINE NEGATIVE (NEGATIVE); PH,URINE 7.5 (5.0-8.0); PROTEIN,URINE NEGATIVE (NEGATIVE)
[2020-02-13 08:16] VITALS: BP 113/71
[2020-02-13 08:17] LABS: PHENCYCLIDINE SCREEN,URINE NEGATIVE (NEGATIVE)
[2020-02-13] MEDS: LORazepam 2 MG TABLET PO PRN (08:41)
[2020-02-13] MEDS: DIVALPROEX SODIUM 500 MG DR TABLET PO SCH ×2 (08:41→20:32)
[2020-02-13 09:47] LABS: BACTERIA,URINE Few /HPF (None Seen); RBC,URINE None Seen /HPF (0-2); SQUAMOUS EPITHELIAL CELL,UR Many /LPF (None Seen)
[2020-02-13 16:02] VITALS: BP 112/68
[2020-02-13] MEDS: OLANZapine 10 MG RAPDIS TABLET PO SCH (20:33)
[2020-02-13] MEDS: ZOLPIDEM TARTRATE 10 MG TABLET PO PRN (20:33)
[2020-02-14 04:58] VITALS: BP 110/69
[2020-02-14] MEDS: DIVALPROEX SODIUM 500 MG DR TABLET PO SCH ×2 (08:16→20:20)
[2020-02-14] MEDS: LORazepam 2 MG TABLET PO PRN ×2 (08:20→16:53)
[2020-02-14 16:08] VITALS: BP 141/88
[2020-02-14] MEDS: OLANZapine 10 MG RAPDIS TABLET PO SCH (20:24)
[2020-02-15 00:05] VITALS: BP 132/82
[2020-02-15] MEDS: DIVALPROEX SODIUM 500 MG DR TABLET PO SCH ×2 (08:02→20:36)
[2020-02-15 08:07] VITALS: BP 99/70
[2020-02-15] MEDS: LORazepam 2 MG TABLET PO PRN ×2 (10:37→16:19)
[2020-02-15] MEDS: HALOPERIDOL 5 MG TABLET PO PRN (10:55)
[2020-02-15 16:24] VITALS: BP 110/60
[2020-02-15] MEDS: ZOLPIDEM TARTRATE 10 MG TABLET PO PRN (20:36)
[2020-02-15] MEDS: OLANZapine 10 MG RAPDIS TABLET PO SCH (20:36)
[2020-02-16 02:29] VITALS: BP 114/62
[2020-02-16] MEDS: DIVALPROEX SODIUM 500 MG DR TABLET PO SCH ×2 (08:04→20:11)
[2020-02-16] MEDS: LORazepam 2 MG TABLET PO PRN (08:04)
[2020-02-16 08:12] VITALS: BP 112/73
[2020-02-16] MEDS: HALOPERIDOL 5 MG TABLET PO PRN ×2 (11:00→20:11)
[2020-02-16 16:05] VITALS: BP 120/66
[2020-02-16] MEDS: OLANZapine 10 MG RAPDIS TABLET PO SCH (20:11)
[2020-02-17 05:42] VITALS: BP 122/68
[2020-02-17 08:06] VITALS: BP 102/66
[2020-02-17] MEDS: DIVALPROEX SODIUM 500 MG DR TABLET PO SCH ×2 (09:46→20:05)
[2020-02-17 10:30] VITALS: BP 116/80
[2020-02-17] MEDS: LORazepam 2 MG TABLET PO PRN (10:40)
[2020-02-17] MEDS: HALOPERIDOL 5 MG TABLET PO PRN ×2 (11:48→20:05)
[2020-02-17 16:21] VITALS: BP 104/62
[2020-02-17] MEDS: OLANZapine 10 MG RAPDIS TABLET PO SCH (20:05)
[2020-02-18 03:33] VITALS: BP 110/55
[2020-02-18 08:13] VITALS: BP 109/66
[2020-02-18] MEDS: LORazepam 2 MG TABLET PO PRN ×2 (09:28→17:13)
[2020-02-18] MEDS: DIVALPROEX SODIUM 500 MG DR TABLET PO SCH ×2 (09:28→20:05)
[2020-02-18] MEDS: HALOPERIDOL 5 MG TABLET PO PRN (11:05)
[2020-02-18 16:08] VITALS: BP 105/70
[2020-02-18] MEDS: OLANZapine 10 MG RAPDIS TABLET PO SCH (20:05)
[2020-02-19 04:43] VITALS: BP 131/65
[2020-02-19 08:26] VITALS: BP 109/72
[2020-02-19] MEDS: DIVALPROEX SODIUM 500 MG DR TABLET PO SCH ×2 (09:59→20:28)
[2020-02-19] MEDS: MULTIVITAMINS WITH MINERALS, THERAPEUTIC TABLET PO SCH (10:00)
[2020-02-19] MEDS: LORazepam 2 MG TABLET PO PRN ×2 (10:31→18:32)
[2020-02-19] MEDS: HALOPERIDOL 5 MG TABLET PO PRN (12:08)
[2020-02-19 16:23] VITALS: BP 116/74
[2020-02-19] MEDS: ACETAMINOPHEN 325 MG TABLET PO PRN (17:45)
[2020-02-19] MEDS: ZOLPIDEM TARTRATE 10 MG TABLET PO PRN (20:28)
[2020-02-19] MEDS: OLANZapine 10 MG RAPDIS TABLET PO SCH (20:28)
[2020-02-20 02:10] VITALS: BP 102/68
[2020-02-20] MEDS: MULTIVITAMINS WITH MINERALS, THERAPEUTIC TABLET PO SCH (09:06)
[2020-02-20] MEDS: DIVALPROEX SODIUM 500 MG DR TABLET PO SCH ×2 (09:06→20:26)
[2020-02-20] MEDS: LORazepam 2 MG TABLET PO PRN ×2 (09:20→16:19)
[2020-02-20 10:10] VITALS: BP 101/68
[2020-02-20] MEDS: ACETAMINOPHEN 325 MG TABLET PO PRN (10:10)
[2020-02-20 16:10] VITALS: BP 150/62
[2020-02-20] MEDS: HALOPERIDOL 5 MG TABLET PO PRN (16:19)
[2020-02-20] MEDS ORDERED: ONDANSETRON HCL 4 MG TABLET PO PRN (16:30)
[2020-02-20] MEDS ORDERED: MAG HYDROX/AL HYDROX/SIMETH ES 30 ML SUSPENSION UDCUP PO PRN (16:30)
[2020-02-20] MEDS ORDERED: GuaiFENesin/D-METHORPHAN [SUGAR-FREE] 200-20MG/10 ML SYRUP UDCUP PO PRN (16:30)
[2020-02-20] MEDS ORDERED: ACETAMINOPHEN 325 MG TABLET PO PRN (16:30)
[2020-02-20] MEDS ORDERED: IBUPROFEN 400 MG TABLET PO PRN (16:30)
[2020-02-20] MEDS ORDERED: PETROLATUM,WHITE 28 GM JELLY TP PRN (16:30)
[2020-02-20] MEDS ORDERED: CloNIDine HCL 0.1 MG TABLET PO PRN (16:30)
[2020-02-20] MEDS ORDERED: NICOTINE 14 MG/24 HOUR PATCH TD PRN (16:30)
[2020-02-20] MEDS ORDERED: LOPERAMIDE HCL 2 MG CAPSULE PO PRN (16:30)
[2020-02-20] MEDS ORDERED: DOCUSATE SODIUM 100 MG CAPSULE PO PRN (16:30)
[2020-02-20] MEDS ORDERED: MAGNESIUM HYDROXIDE SUSPENSION 30 ML UDCUP PO PRN (16:30)
[2020-02-20] MEDS ORDERED: ALBUTEROL SULFATE HFA 90 MCG/PUFF 8 GM INHALER IH PRN (16:30)
[2020-02-20] MEDS: OLANZapine 10 MG RAPDIS TABLET PO SCH (20:26)
[2020-02-20] MEDS: ZOLPIDEM TARTRATE 10 MG TABLET PO PRN (20:26)
[2020-02-21 01:13] VITALS: BP 132/78
[2020-02-21 08:04] VITALS: BP 115/57
[2020-02-21] MEDS: DIVALPROEX SODIUM 500 MG DR TABLET PO SCH (08:13)
[2020-02-21] MEDS: MULTIVITAMINS WITH MINERALS, THERAPEUTIC TABLET PO SCH (08:13)
[2020-02-21] MEDS: LORazepam 2 MG TABLET PO PRN (10:21)
[2020-02-21] MEDS ORDERED: OLAN10TA22 PO (12:38)
[2020-02-21] MEDS ORDERED: DIVA-112 PO (12:38)
== END 2020-02-21 15:15 | disposition home or self-care (01) | DRG 885 ==
LOC: B3A 21:13
PROVIDERS: ADMIT Psychiatry & Neurology Psychiatry
DX: F25.0 Schizoaffective disorder, bipolar type (principal); R45.851 Suicidal ideations; F15.20 Other stimulant dependence, uncomplicated; Z91.5 Personal history of self-harm; Z59.0 Homelessness; G40.909 Epilepsy, unspecified, not intractable, without status epilepticus; F32.9 Major depressive disorder, single episode, unspecified; F10.10 Alcohol abuse, uncomplicated; D64.9 Anemia, unspecified; I95.9 Hypotension, unspecified; F19.10 Other psychoactive substance abuse, uncomplicated; Z79.899 Other long term (current) drug therapy; Y90.9 Presence of alcohol in blood, level not specified
CPT/HCPCS: 80307; 84436; 84439; 84443; 87081; 87086

== ENCOUNTER 2020-02-28 15:29 | Inpatient (IN) | payer MEDICAID, OTHER ==
[~2020-02-28] VITALS: Ht 160 cm; Wt 72.1 kg
[~2020-02-28 15:29] MED LIST changes: +OLAN10TA22 PO; -OLAN5TAB30 PO
[2020-02-28 16:37] LABS: BASOPHILS % (AUTO) 0.8 % (0.0-2.0); EOSINOPHILS % (AUTO) 3.3 % (1.0-6.0); HEMATOCRIT 35.8 % (36-46); HEMOGLOBIN 12.2 g/dL (12.0-16.0); LYMPHOCYTES # (AUTO) 2.7 K/uL (1.0-4.8); MEAN CORPUSCULAR HEMOGLOBIN 32.9 pg (26.0-34.0); MEAN CORPUSCULAR HGB CONC 34.2 G/dL (31.0-37.0); MEAN CORPUSCULAR VOLUME 96 fL (80-100); MONOCYTES # (AUTO) 0.8 K/uL (0.1-1.0); MONOCYTES % (AUTO) 8.1 % (2.0-9.0); NEUTROPHILS # (AUTO) 5.7 K/uL (1.8-7.7); NEUTROPHILS % (AUTO) 59.8 % (40.0-70.0); PLATELET COUNT (AUTO) 262 K/uL (150-450); RED BLOOD CELL COUNT(AUTO) 3.72 MIL/uL (4.00-5.20); RED CELL DISTRIBUTION WIDTH 14.4 % (11.5-14.5)
[2020-02-28 16:52] LABS: ANION GAP 12 mmol/L (8-16); CALCIUM, TOTAL 8.4 mg/dL (8.8-10.5); CARBON DIOXIDE 26 mmol/L (22-29); CHLORIDE 103 mmol/L (98-107); CREATININE 0.82 mg/dL (0.60-1.30); GLOMERULAR FILTR. RATE CALC > 60 mL/min (>60); GLUCOSE,RANDOM 96 mg/dL (70-110); POTASSIUM 3.6 mmol/L (3.5-5.1); SODIUM SERUM 141 mmol/L (136-145); UREA NITROGEN, BLOOD 10 mg/dL (7-18)
[2020-02-28 17:04] LABS: ALANINE AMINOTRANSFERASE 22 U/L (12-78); ALBUMIN 3.7 g/dL (3.4-5.0); ALKALINE PHOSPHATASE 70 U/L (46-116); ASPARTATE AMINOTRANSFERASE 17 U/L (15-37); BILIRUBIN,TOTAL 0.6 mg/dL (0.1-1.0); HCG,QUANTITATIVE < 1 mIU/mL (0-6); TOTAL PROTEIN, SERUM 7.4 g/dL (6.4-8.2)
[2020-02-28 18:39] LABS: VALPROIC ACID < 3 mcg/mL (50-100)
[2020-02-28 23:11] VITALS: BP 101/72
[2020-02-29 04:54] VITALS: BP 110/74
[2020-02-29] MEDS ORDERED: ONDANSETRON HCL 4 MG TABLET PO PRN (06:00)
[2020-02-29] MEDS ORDERED: DOCUSATE SODIUM 100 MG CAPSULE PO PRN (06:00)
[2020-02-29] MEDS ORDERED: CloNIDine HCL 0.1 MG TABLET PO PRN (06:00)
[2020-02-29] MEDS ORDERED: MAGNESIUM HYDROXIDE SUSPENSION 30 ML UDCUP PO PRN (06:00)
[2020-02-29] MEDS ORDERED: PETROLATUM,WHITE 28 GM JELLY TP PRN (06:00)
[2020-02-29] MEDS ORDERED: LOPERAMIDE HCL 2 MG CAPSULE PO PRN (06:00)
[2020-02-29] MEDS ORDERED: GuaiFENesin/D-METHORPHAN [SUGAR-FREE] 200-20MG/10 ML SYRUP UDCUP PO PRN (06:00)
[2020-02-29] MEDS ORDERED: ALBUTEROL SULFATE HFA 90 MCG/PUFF 8 GM INHALER IH PRN (06:00)
[2020-02-29 08:28] VITALS: BP 117/71
[2020-02-29] MEDS: LORazepam 2 MG TABLET PO PRN ×2 (09:58→20:27)
[2020-02-29] MEDS: DIVALPROEX SODIUM 500 MG DR TABLET PO SCH ×2 (12:02→20:22)
[2020-02-29 17:33] VITALS: BP 102/59
[2020-02-29] MEDS: OLANZapine 10 MG RAPDIS TABLET PO SCH (20:23)
[2020-03-01 05:19] VITALS: BP 110/64
[2020-03-01 08:29] VITALS: BP 118/66
[2020-03-01] MEDS: DIVALPROEX SODIUM 500 MG DR TABLET PO SCH ×2 (08:54→21:09)
[2020-03-01] MEDS: IBUPROFEN 400 MG TABLET PO PRN (10:00)
[2020-03-01 16:31] VITALS: BP 118/79
[2020-03-01] MEDS: OLANZapine 10 MG RAPDIS TABLET PO SCH (21:09)
[2020-03-01] MEDS: ZOLPIDEM TARTRATE 10 MG TABLET PO PRN (21:09)
[2020-03-02 06:24] VITALS: BP 94/60
[2020-03-02 08:32] VITALS: BP 111/69
[2020-03-02] MEDS: DIVALPROEX SODIUM 500 MG DR TABLET PO SCH ×2 (08:41→21:21)
[2020-03-02] MEDS: LORazepam 2 MG TABLET PO PRN (08:41)
[2020-03-02] MEDS: IBUPROFEN 400 MG TABLET PO PRN (08:50)
[2020-03-02 17:25] VITALS: BP 110/66
[2020-03-02] MEDS: OLANZapine 10 MG RAPDIS TABLET PO SCH (21:21)
[2020-03-03 05:10] VITALS: BP 102/63
[2020-03-03 08:39] VITALS: BP 116/74
[2020-03-03] MEDS: DIVALPROEX SODIUM 500 MG DR TABLET PO SCH ×2 (09:21→21:17)
[2020-03-03] MEDS: LORazepam 2 MG TABLET PO PRN (09:47)
[2020-03-03 16:29] VITALS: BP 103/65
[2020-03-03] MEDS: OLANZapine 10 MG RAPDIS TABLET PO SCH (21:17)
[2020-03-04 02:22] VITALS: BP 104/68
[2020-03-04 08:29] VITALS: BP 106/63
[2020-03-04 08:45] VITALS: BP 116/72
[2020-03-04] MEDS: DIVALPROEX SODIUM 500 MG DR TABLET PO SCH ×2 (08:48→20:59)
[2020-03-04] MEDS: LORazepam 2 MG TABLET PO PRN ×2 (08:50→18:00)
[2020-03-04] MEDS: QUEtiapine FUMARATE 100 MG TABLET PO PRN (12:31)
[2020-03-04 16:40] VITALS: BP 115/60
[2020-03-04] MEDS: MAG HYDROX/AL HYDROX/SIMETH ES 30 ML SUSPENSION UDCUP PO PRN (20:06)
[2020-03-04] MEDS: OLANZapine 10 MG RAPDIS TABLET PO SCH (20:59)
[2020-03-05 02:15] VITALS: BP 102/70
[2020-03-05 08:10] VITALS: BP 130/73
[2020-03-05] MEDS: DIVALPROEX SODIUM 500 MG DR TABLET PO SCH ×2 (08:18→20:50)
[2020-03-05] MEDS: LORazepam 2 MG TABLET PO PRN ×2 (08:18→16:17)
[2020-03-05 14:04] VITALS: BP 106/54
[2020-03-05] MEDS: ACETAMINOPHEN 325 MG TABLET PO PRN (14:05)
[2020-03-05] MEDS: NICOTINE 14 MG/24 HOUR PATCH TD PRN (15:02)
[2020-03-05 17:53] VITALS: BP 122/68
[2020-03-05] MEDS: OLANZapine 10 MG RAPDIS TABLET PO SCH (20:51)
[2020-03-06 01:46] VITALS: BP 124/79
[2020-03-06 08:26] VITALS: BP 110/66
[2020-03-06] MEDS: DIVALPROEX SODIUM 500 MG DR TABLET PO SCH ×2 (09:16→20:45)
[2020-03-06] MEDS: QUEtiapine FUMARATE 100 MG TABLET PO PRN (09:48)
[2020-03-06] MEDS: LORazepam 2 MG TABLET PO PRN (09:48)
[2020-03-06] MEDS: NICOTINE 14 MG/24 HOUR PATCH TD PRN (10:05)
[2020-03-06] MEDS: ACETAMINOPHEN 325 MG TABLET PO PRN (16:37)
[2020-03-06 16:43] VITALS: BP 106/51
[2020-03-06] MEDS: OLANZapine 10 MG RAPDIS TABLET PO SCH (20:45)
[2020-03-07 03:43] VITALS: BP 114/62
[2020-03-07] MEDS: DIVALPROEX SODIUM 500 MG DR TABLET PO SCH ×2 (08:53→20:31)
[2020-03-07 08:56] VITALS: BP 108/71
[2020-03-07] MEDS: NICOTINE 14 MG/24 HOUR PATCH TD PRN (09:26)
[2020-03-07] MEDS: ACETAMINOPHEN 325 MG TABLET PO PRN ×2 (09:30→16:19)
[2020-03-07] MEDS: LORazepam 2 MG TABLET PO PRN (09:31)
[2020-03-07] MEDS: QUEtiapine FUMARATE 100 MG TABLET PO PRN (10:24)
[2020-03-07 17:24] VITALS: BP 111/64
[2020-03-07] MEDS: OLANZapine 10 MG RAPDIS TABLET PO SCH (20:31)
[2020-03-08 01:39] VITALS: BP 108/71
[2020-03-08 08:30] VITALS: BP 100/58
[2020-03-08] MEDS: LORazepam 2 MG TABLET PO PRN (10:10)
[2020-03-08] MEDS: QUEtiapine FUMARATE 100 MG TABLET PO PRN ×2 (10:10→17:44)
[2020-03-08] MEDS: DIVALPROEX SODIUM 500 MG DR TABLET PO SCH ×2 (10:10→20:34)
[2020-03-08] MEDS: ACETAMINOPHEN 325 MG TABLET PO PRN (11:09)
[2020-03-08 16:19] VITALS: BP_SYST 119; BP_SYST 148; BP_DIAS 78; BP_DIAS 86
[2020-03-08] MEDS: NICOTINE 14 MG/24 HOUR PATCH TD PRN (17:33)
[2020-03-08] MEDS: OLANZapine 10 MG RAPDIS TABLET PO SCH (20:34)
[2020-03-09 06:46] VITALS: BP 90/60
[2020-03-09 08:10] VITALS: BP 107/62
[2020-03-09] MEDS: LORazepam 2 MG TABLET PO PRN ×2 (08:42→17:31)
[2020-03-09] MEDS: DIVALPROEX SODIUM 500 MG DR TABLET PO SCH ×2 (08:42→20:06)
[2020-03-09 16:00] VITALS: BP 112/70
[2020-03-09] MEDS: QUEtiapine FUMARATE 100 MG TABLET PO PRN (17:31)
[2020-03-09] MEDS: OLANZapine 10 MG RAPDIS TABLET PO SCH (20:06)
[2020-03-10 04:00] VITALS: BP 114/75
[2020-03-10] MEDS: DIVALPROEX SODIUM 500 MG DR TABLET PO SCH ×2 (09:42→20:30)
[2020-03-10] MEDS: LORazepam 2 MG TABLET PO PRN ×2 (09:53→16:14)
[2020-03-10] MEDS: NICOTINE 14 MG/24 HOUR PATCH TD PRN (09:53)
[2020-03-10 09:55] VITALS: BP 124/79
[2020-03-10 16:43] VITALS: BP 141/92
[2020-03-10] MEDS: OLANZapine 10 MG RAPDIS TABLET PO SCH (20:31)
[2020-03-11 04:21] VITALS: BP 128/78
[2020-03-11 08:19] VITALS: BP 104/60
[2020-03-11] MEDS: LORazepam 2 MG TABLET PO PRN ×2 (08:23→14:07)
[2020-03-11] MEDS: DIVALPROEX SODIUM 500 MG DR TABLET PO SCH ×2 (08:23→20:17)
[2020-03-11] MEDS: QUEtiapine FUMARATE 100 MG TABLET PO PRN ×2 (09:34→17:23)
[2020-03-11] MEDS: ACETAMINOPHEN 325 MG TABLET PO PRN (09:34)
[2020-03-11 17:21] VITALS: BP 119/71
[2020-03-11] MEDS: MAG HYDROX/AL HYDROX/SIMETH ES 30 ML SUSPENSION UDCUP PO PRN (17:30)
[2020-03-11] MEDS: OLANZapine 10 MG RAPDIS TABLET PO SCH (20:16)
[2020-03-12 01:24] VITALS: BP 110/82
[2020-03-12 08:23] VITALS: BP 112/81
[2020-03-12] MEDS: DIVALPROEX SODIUM 500 MG DR TABLET PO SCH ×2 (09:02→20:37)
[2020-03-12] MEDS: LORazepam 2 MG TABLET PO PRN ×2 (09:02→18:57)
[2020-03-12] MEDS: QUEtiapine FUMARATE 100 MG TABLET PO PRN (09:02)
[2020-03-12 17:43] VITALS: BP 119/72
[2020-03-12] MEDS: MAG HYDROX/AL HYDROX/SIMETH ES 30 ML SUSPENSION UDCUP PO PRN (17:45)
[2020-03-12] MEDS: NICOTINE 14 MG/24 HOUR PATCH TD PRN (17:45)
[2020-03-12] MEDS: OLANZapine 10 MG RAPDIS TABLET PO SCH (20:37)
[2020-03-12] MEDS: ZOLPIDEM TARTRATE 10 MG TABLET PO PRN (20:37)
[2020-03-13 04:21] VITALS: BP 105/77
[2020-03-13] MEDS: DIVALPROEX SODIUM 500 MG DR TABLET PO SCH ×2 (08:11→21:10)
[2020-03-13 08:39] VITALS: BP 103/58
[2020-03-13 10:00] VITALS: BP 114/74
[2020-03-13] MEDS: LORazepam 2 MG TABLET PO PRN ×2 (10:04→17:04)
[2020-03-13] MEDS: QUEtiapine FUMARATE 100 MG TABLET PO PRN (10:14)
[2020-03-13 16:44] VITALS: BP 110/71
[2020-03-13 17:44] VITALS: BP 110/71
[2020-03-13] MEDS: IBUPROFEN 400 MG TABLET PO PRN (17:46)
[2020-03-13] MEDS: OLANZapine 10 MG RAPDIS TABLET PO SCH (21:11)
[2020-03-14 01:32] VITALS: BP 102/76
[2020-03-14] MEDS: DIVALPROEX SODIUM 500 MG DR TABLET PO SCH (08:31)
[2020-03-14 08:42] VITALS: BP 110/69
[2020-03-14] MEDS: LORazepam 2 MG TABLET PO PRN (09:30)
[2020-03-14] MEDS: QUEtiapine FUMARATE 100 MG TABLET PO PRN (09:30)
[2020-03-14] MEDS ORDERED: OLAN10TA22 PO (10:07)
[2020-03-14] MEDS ORDERED: DIVA-112 PO (10:07)
== END 2020-03-14 13:15 | disposition home or self-care (01) | DRG 885 ==
LOC: EMS 15:29 → B3A 19:57
DX: F25.0 Schizoaffective disorder, bipolar type (principal); R45.851 Suicidal ideations; F15.20 Other stimulant dependence, uncomplicated; G40.909 Epilepsy, unspecified, not intractable, without status epilepticus; R45.850 Homicidal ideations; F17.200 Nicotine dependence, unspecified, uncomplicated; F10.10 Alcohol abuse, uncomplicated; E83.51 Hypocalcemia; F41.9 Anxiety disorder, unspecified; Z59.0 Homelessness; Z79.899 Other long term (current) drug therapy; Z91.5 Personal history of self-harm
CPT/HCPCS: 82310; 87081; G0480; Q0162

== ENCOUNTER 2020-08-29 12:55 | Inpatient (IN) | payer MEDICAID, OTHER ==
[~2020-08-29] VITALS: Ht 160 cm; Wt 68.4 kg
[2020-08-29 15:04] LABS: AMPHET/METH SCREEN,URINE POSITIVE (NEGATIVE); BARBITURATE SCREEN, URINE NEGATIVE (NEGATIVE); BENZODIAZEPINES SCREEN,URINE NEGATIVE (NEGATIVE); CANNABINOID SCREEN,URINE POSITIVE (NEGATIVE); COCAINE SCREEN,URINE NEGATIVE (NEGATIVE); METHADONE SCREEN, URINE NEGATIVE (NEGATIVE); OPIATE SCREEN,URINE NEGATIVE (NEGATIVE)
[2020-08-29 15:08] LABS: PHENCYCLIDINE SCREEN,URINE NEGATIVE (NEGATIVE)
[2020-08-29 15:39] LABS: BASOPHILS % (AUTO) 0.4 % (0.0-2.0); EOSINOPHILS % (AUTO) 3.3 % (1.0-6.0); HEMOGLOBIN 14.2 g/dL (12.0-16.0); LYMPHOCYTES # (AUTO) 2.1 K/uL (1.0-4.8); LYMPHOCYTES % (AUTO) 26.2 % (22.0-44.0); MEAN CORPUSCULAR HEMOGLOBIN 32.3 pg (26.0-34.0); MEAN CORPUSCULAR HGB CONC 33.7 G/dL (31.0-37.0); MEAN CORPUSCULAR VOLUME 96 fL (80-100); MONOCYTES # (AUTO) 0.6 K/uL (0.1-1.0); MONOCYTES % (AUTO) 7.7 % (2.0-9.0); NEUTROPHILS % (AUTO) 62.4 % (40.0-70.0); PLATELET COUNT (AUTO) 233 K/uL (150-450); RED BLOOD CELL COUNT(AUTO) 4.39 MIL/uL (4.00-5.20); RED CELL DISTRIBUTION WIDTH 13.2 % (11.5-14.5)
[2020-08-29 15:47] LABS: ANION GAP 14 mmol/L (8-16); CARBON DIOXIDE 27 mmol/L (22-29); CHLORIDE 102 mmol/L (98-107); CREATININE 0.79 mg/dL (0.60-1.30); GLUCOSE,RANDOM 84 mg/dL (70-110); POTASSIUM 4.1 mmol/L (3.5-5.1); SODIUM SERUM 143 mmol/L (136-145); UREA NITROGEN, BLOOD 12 mg/dL (7-18)
[2020-08-29 15:48] LABS: CALCIUM, TOTAL 9.7 mg/dL (8.8-10.5); GLOMERULAR FILTR. RATE CALC > 60 mL/min (>60)
[2020-08-29] MEDS ORDERED: HALOPERIDOL 5 MG TABLET PO PRN (16:30)
[2020-08-29] MEDS ORDERED: ZOLPIDEM TARTRATE 10 MG TABLET PO PRN (16:30)
[2020-08-29 16:36] LABS: ALANINE AMINOTRANSFERASE 21 U/L (12-78); ALKALINE PHOSPHATASE 70 U/L (46-116); ASPARTATE AMINOTRANSFERASE 15 U/L (15-37); HCG,QUANTITATIVE 1 mIU/mL (0-6); TOTAL PROTEIN, SERUM 8.2 g/dL (6.4-8.2)
[2020-08-29 16:38] LABS: ACETAMINOPHEN < 2 mcg/mL (10-30)
[2020-08-29 16:46] LABS: SALICYLATE 0.6 mg/dL (2.8-20.0)
[2020-08-29 18:09] LABS: COVID AG,FIA SOURCE NASOPHARYNGEAL
[2020-08-29] MEDS: OLANZapine 5 MG TABLET PO SCH (22:06)
[2020-08-29] MEDS: LORazepam 2 MG TABLET PO PRN (22:06)
[2020-08-29 22:30] VITALS: BP 105/65
[2020-08-30 04:27] VITALS: BP 106/65
[2020-08-30] MEDS ORDERED: INFLUENZA VIRUS VACCINE QVS 2020-21 (6MO+)/PF 60 MCG/0.5 ML SYRINGE IM ONE (04:45)
[2020-08-30] MEDS ORDERED: CloNIDine HCL 0.1 MG TABLET PO PRN (07:45)
[2020-08-30] MEDS ORDERED: ACETAMINOPHEN 325 MG TABLET PO PRN (07:45)
[2020-08-30] MEDS ORDERED: PETROLATUM,WHITE 28 GM JELLY TP PRN (07:45)
[2020-08-30] MEDS ORDERED: MAG HYDROX/AL HYDROX/SIMETH ES 30 ML SUSPENSION UDCUP PO PRN (07:45)
[2020-08-30] MEDS ORDERED: LOPERAMIDE HCL 2 MG CAPSULE PO PRN (07:45)
[2020-08-30] MEDS ORDERED: GuaiFENesin/D-METHORPHAN [SUGAR-FREE] 200-20MG/10 ML SYRUP UDCUP PO PRN (07:45)
[2020-08-30] MEDS ORDERED: NICOTINE 14 MG/24 HOUR PATCH TD PRN (07:45)
[2020-08-30] MEDS ORDERED: IBUPROFEN 400 MG TABLET PO PRN (07:45)
[2020-08-30] MEDS ORDERED: DOCUSATE SODIUM 100 MG CAPSULE PO PRN (07:45)
[2020-08-30] MEDS ORDERED: MAGNESIUM HYDROXIDE SUSPENSION 30 ML UDCUP PO PRN (07:45)
[2020-08-30] MEDS ORDERED: ALBUTEROL SULFATE HFA 90 MCG/PUFF 8 GM INHALER IH PRN (07:45)
[2020-08-30] MEDS ORDERED: ONDANSETRON HCL 4 MG TABLET PO PRN (07:45)
[2020-08-30] MEDS: LORazepam 2 MG TABLET PO PRN (08:19)
[2020-08-30] MEDS: OLANZapine 5 MG TABLET PO SCH ×2 (08:19→17:29)
[2020-08-30 12:41] VITALS: BP 118/76
[2020-08-30 16:13] VITALS: BP 106/63
[2020-08-31 02:20] VITALS: BP 112/61
[2020-08-31 08:16] VITALS: BP 120/81
[2020-08-31] MEDS: GABAPENTIN 300 MG CAPSULE PO SCH ×2 (08:32→16:03)
[2020-08-31] MEDS: OLANZapine 5 MG TABLET PO SCH ×2 (08:32→16:03)
[2020-08-31] MEDS: LORazepam 2 MG TABLET PO PRN (08:32)
[2020-08-31 16:22] VITALS: BP 119/70
[2020-09-01 04:22] VITALS: BP_SYST 110
[2020-09-01 08:21] VITALS: BP 114/68
[2020-09-01] MEDS: LORazepam 2 MG TABLET PO PRN (08:23)
[2020-09-01] MEDS: GABAPENTIN 300 MG CAPSULE PO SCH ×2 (08:23→16:36)
[2020-09-01] MEDS: OLANZapine 5 MG TABLET PO SCH ×2 (08:23→16:36)
[2020-09-01 16:17] VITALS: BP 110/64
[2020-09-02 04:37] VITALS: BP 108/60
[2020-09-02 08:13] VITALS: BP 116/82
[2020-09-02] MEDS: OLANZapine 5 MG TABLET PO SCH ×2 (08:34→16:04)
[2020-09-02] MEDS: GABAPENTIN 300 MG CAPSULE PO SCH ×2 (08:34→16:04)
[2020-09-02] MEDS: LORazepam 2 MG TABLET PO PRN (08:34)
[2020-09-02 16:22] VITALS: BP 101/67
[2020-09-02 16:24] VITALS: BP 106/65
[2020-09-03 05:00] VITALS: BP 113/62
[2020-09-03 08:14] VITALS: BP 118/81
[2020-09-03] MEDS: GABAPENTIN 300 MG CAPSULE PO SCH ×2 (08:39→16:04)
[2020-09-03] MEDS: OLANZapine 5 MG TABLET PO SCH ×2 (08:39→16:04)
[2020-09-03] MEDS: LORazepam 2 MG TABLET PO PRN ×2 (08:41→15:49)
[2020-09-03 16:17] VITALS: BP 116/77
[2020-09-04 05:50] VITALS: BP 120/81
[2020-09-04 08:14] VITALS: BP 111/69
[2020-09-04] MEDS: GABAPENTIN 300 MG CAPSULE PO SCH (08:14)
[2020-09-04] MEDS: OLANZapine 5 MG TABLET PO SCH (08:14)
[2020-09-04] MEDS ORDERED: OLAN5TAB2 PO (10:39)
[2020-09-04] MEDS ORDERED: GABA-1181 PO (10:40)
== END 2020-09-04 13:10 | disposition home or self-care (01) | DRG 750 ==
LOC: EMS 12:55 → B3A 16:24
PROVIDERS: ADMIT Psychiatry & Neurology Psychiatry; ATTEND Psychiatry & Neurology Psychiatry
DX: F25.0 Schizoaffective disorder, bipolar type (principal); R45.851 Suicidal ideations; F12.10 Cannabis abuse, uncomplicated; F19.10 Other psychoactive substance abuse, uncomplicated; R03.0 Elevated blood-pressure reading, without diagnosis of hypertension; G40.909 Epilepsy, unspecified, not intractable, without status epilepticus; F31.9 Bipolar disorder, unspecified; F41.9 Anxiety disorder, unspecified; F17.210 Nicotine dependence, cigarettes, uncomplicated; F10.939 Alcohol use, unspecified with withdrawal, unspecified; Y90.9 Presence of alcohol in blood, level not specified; Z20.822 Contact with and (suspected) exposure to COVID-19
CPT/HCPCS: 87426; G0480; G0481

== ENCOUNTER 2020-10-19 23:02 | Inpatient (IN) | payer MEDICAID, OTHER ==
[~2020-10-19] VITALS: Ht 162.6 cm; Wt 64.9 kg
[~2020-10-19 23:02] MED LIST changes: -DIVA-112 PO; +GABA-1181 PO; -OLAN10TA22 PO; +OLAN5TAB2 PO
[2020-10-19 23:49] LABS: BASOPHILS % (AUTO) 0.8 % (0.0-2.0); EOSINOPHILS % (AUTO) 3.6 % (1.0-6.0); HEMATOCRIT 40.8 % (36-46); HEMOGLOBIN 13.5 g/dL (12.0-16.0); LYMPHOCYTES # (AUTO) 3.7 K/uL (1.0-4.8); LYMPHOCYTES % (AUTO) 31.8 % (22.0-44.0); MEAN CORPUSCULAR HGB CONC 33.2 G/dL (31.0-37.0); MEAN CORPUSCULAR VOLUME 96 fL (80-100); MONOCYTES # (AUTO) 0.8 K/uL (0.1-1.0); MONOCYTES % (AUTO) 6.9 % (2.0-9.0); NEUTROPHILS # (AUTO) 6.7 K/uL (1.8-7.7); NEUTROPHILS % (AUTO) 56.9 % (40.0-70.0); PLATELET COUNT (AUTO) 321 K/uL (150-450); RED BLOOD CELL COUNT(AUTO) 4.24 MIL/uL (4.00-5.20); RED CELL DISTRIBUTION WIDTH 13.7 % (11.5-14.5)
[2020-10-19 23:57] LABS: ANION GAP 14 mmol/L (8-16); CARBON DIOXIDE 25 mmol/L (22-29); CHLORIDE 102 mmol/L (98-107); CREATININE 0.75 mg/dL (0.60-1.30); GLOMERULAR FILTR. RATE CALC > 60 mL/min (>60); GLUCOSE,RANDOM 80 mg/dL (70-110); POTASSIUM 3.9 mmol/L (3.5-5.1); SODIUM SERUM 141 mmol/L (136-145); UREA NITROGEN, BLOOD 14 mg/dL (7-18)
[2020-10-20 00:09] LABS: ALANINE AMINOTRANSFERASE 22 U/L (12-78); ALBUMIN 4.5 g/dL (3.4-5.0); ALKALINE PHOSPHATASE 64 U/L (46-116); ASPARTATE AMINOTRANSFERASE 20 U/L (15-37); BILIRUBIN,TOTAL 0.7 mg/dL (0.1-1.0); HCG,QUANTITATIVE < 1 mIU/mL (0-6); TOTAL PROTEIN, SERUM 8.3 g/dL (6.4-8.2)
[2020-10-20 00:39] LABS: COVID AG,FIA SOURCE NASOPHARYNGEAL
[2020-10-20] MEDS ORDERED: ZOLPIDEM TARTRATE 10 MG TABLET PO PRN (00:45)
[2020-10-20 03:02] VITALS: BP 109/73
[2020-10-20] MEDS ORDERED: INFLUENZA VIRUS VACCINE QVS 2020-21 (6MO+)/PF 60 MCG/0.5 ML SYRINGE IM ONE (04:45)
[2020-10-20 08:00] VITALS: BP 114/76
[2020-10-20] MEDS ORDERED: MAG HYDROX/AL HYDROX/SIMETH ES 30 ML SUSPENSION UDCUP PO PRN (08:30)
[2020-10-20] MEDS ORDERED: GuaiFENesin/D-METHORPHAN [SUGAR-FREE] 200-20MG/10 ML SYRUP UDCUP PO PRN (08:30)
[2020-10-20] MEDS ORDERED: ONDANSETRON HCL 4 MG TABLET PO PRN (08:30)
[2020-10-20] MEDS ORDERED: DOCUSATE SODIUM 100 MG CAPSULE PO PRN (08:30)
[2020-10-20] MEDS ORDERED: ALBUTEROL SULFATE HFA 90 MCG/PUFF 8 GM INHALER IH PRN (08:30)
[2020-10-20] MEDS ORDERED: LOPERAMIDE HCL 2 MG CAPSULE PO PRN (08:30)
[2020-10-20] MEDS ORDERED: PETROLATUM,WHITE 28 GM JELLY TP PRN (08:30)
[2020-10-20] MEDS ORDERED: CloNIDine HCL 0.1 MG TABLET PO PRN (08:30)
[2020-10-20] MEDS ORDERED: MAGNESIUM HYDROXIDE SUSPENSION 30 ML UDCUP PO PRN (08:30)
[2020-10-20] MEDS: LORazepam 2 MG TABLET PO PRN (14:05)
[2020-10-20] MEDS: OLANZapine 5 MG TABLET PO SCH ×2 (15:15→20:08)
[2020-10-20] MEDS: GABAPENTIN 300 MG CAPSULE PO SCH ×2 (15:15→20:08)
[2020-10-20 17:15] VITALS: BP 104/68
[2020-10-21 07:09] LABS: CHOL/HDL RATIO 2.1 (3.9-5.7)
[2020-10-21 08:45] VITALS: BP 113/63
[2020-10-21] MEDS: GABAPENTIN 300 MG CAPSULE PO SCH ×2 (09:18→20:51)
[2020-10-21] MEDS: OLANZapine 5 MG TABLET PO SCH ×2 (09:18→20:50)
[2020-10-21 16:00] VITALS: BP 99/68
[2020-10-22] MEDS: OLANZapine 5 MG TABLET PO SCH ×2 (08:20→20:21)
[2020-10-22] MEDS: GABAPENTIN 300 MG CAPSULE PO SCH ×2 (08:20→20:21)
[2020-10-22 08:45] VITALS: BP 113/74
[2020-10-22 16:00] VITALS: BP 134/65
[2020-10-22] MEDS: HALOPERIDOL 5 MG TABLET PO PRN (16:47)
[2020-10-23 08:00] VITALS: BP 124/81
[2020-10-23] MEDS: GABAPENTIN 300 MG CAPSULE PO SCH ×2 (08:36→20:20)
[2020-10-23] MEDS: OLANZapine 5 MG TABLET PO SCH ×2 (08:36→20:20)
[2020-10-23 16:59] VITALS: BP 100/70
[2020-10-24] MEDS: OLANZapine 5 MG TABLET PO SCH ×2 (08:18→20:23)
[2020-10-24] MEDS: GABAPENTIN 300 MG CAPSULE PO SCH ×2 (08:18→20:23)
[2020-10-24 10:09] VITALS: BP 89/46
[2020-10-24] MEDS: NICOTINE 14 MG/24 HOUR PATCH TD PRN (14:15)
[2020-10-24 18:51] VITALS: BP 112/76
[2020-10-25] MEDS: NICOTINE 14 MG/24 HOUR PATCH TD PRN (08:18)
[2020-10-25] MEDS: GABAPENTIN 300 MG CAPSULE PO SCH ×2 (08:18→20:15)
[2020-10-25] MEDS: OLANZapine 5 MG TABLET PO SCH ×2 (08:18→20:15)
[2020-10-25] MEDS: LORazepam 2 MG TABLET PO PRN (08:57)
[2020-10-25] MEDS: HALOPERIDOL 5 MG TABLET PO PRN (08:57)
[2020-10-25 09:30] VITALS: BP 110/80
[2020-10-26 07:20] VITALS: BP 134/72
[2020-10-26] MEDS: LORazepam 2 MG TABLET PO PRN (07:21)
[2020-10-26 09:33] VITALS: BP 117/83
[2020-10-26] MEDS: GABAPENTIN 300 MG CAPSULE PO SCH ×2 (11:23→20:12)
[2020-10-26] MEDS: OLANZapine 5 MG TABLET PO SCH ×2 (11:24→20:12)
[2020-10-26] MEDS: NICOTINE 14 MG/24 HOUR PATCH TD PRN (13:46)
[2020-10-26 15:21] LABS: COVID AG,FIA SOURCE NASOPHARYNGEAL
[2020-10-26 16:16] VITALS: BP 11/64
[2020-10-27 08:26] VITALS: BP 105/67
[2020-10-27] MEDS: OLANZapine 5 MG TABLET PO SCH ×2 (09:03→20:34)
[2020-10-27] MEDS: GABAPENTIN 300 MG CAPSULE PO SCH ×2 (09:03→20:34)
[2020-10-27] MEDS: NICOTINE 14 MG/24 HOUR PATCH TD PRN (09:07)
[2020-10-27] MEDS: HALOPERIDOL 5 MG TABLET PO PRN (09:07)
[2020-10-27] MEDS: LORazepam 2 MG TABLET PO PRN ×2 (09:07→16:03)
[2020-10-27] MEDS: ACETAMINOPHEN 325 MG TABLET PO PRN (09:36)
[2020-10-27] MEDS: IBUPROFEN 400 MG TABLET PO PRN (16:03)
[2020-10-27 16:20] VITALS: BP 134/70
[2020-10-28 04:59] VITALS: BP 96/60
[2020-10-28] MEDS: GABAPENTIN 300 MG CAPSULE PO SCH ×2 (08:18→20:35)
[2020-10-28] MEDS: OLANZapine 5 MG TABLET PO SCH (08:18)
[2020-10-28 09:00] VITALS: BP 113/80
[2020-10-28] MEDS: LORazepam 2 MG TABLET PO PRN ×2 (09:35→16:16)
[2020-10-28] MEDS: HALOPERIDOL 5 MG TABLET PO PRN (09:35)
[2020-10-28] MEDS: NICOTINE 14 MG/24 HOUR PATCH TD PRN (09:59)
[2020-10-28 16:00] VITALS: BP 99/60
[2020-10-28] MEDS: OLANZapine 10 MG TABLET PO SCH (20:35)
[2020-10-29] MEDS: OLANZapine 10 MG TABLET PO SCH ×2 (08:29→20:17)
[2020-10-29] MEDS: GABAPENTIN 300 MG CAPSULE PO SCH ×2 (08:29→20:17)
[2020-10-29 09:52] VITALS: BP 99/55
[2020-10-29] MEDS: LORazepam 2 MG TABLET PO PRN ×2 (10:11→16:10)
[2020-10-29] MEDS: NICOTINE 14 MG/24 HOUR PATCH TD PRN (16:10)
[2020-10-29] MEDS: HALOPERIDOL 5 MG TABLET PO PRN (17:46)
[2020-10-30 08:42] VITALS: BP 109/79
[2020-10-30] MEDS: OLANZapine 10 MG TABLET PO SCH ×2 (08:46→20:44)
[2020-10-30] MEDS: GABAPENTIN 300 MG CAPSULE PO SCH ×2 (08:46→20:44)
[2020-10-30] MEDS: HALOPERIDOL 5 MG TABLET PO PRN (09:28)
[2020-10-30] MEDS: LORazepam 2 MG TABLET PO PRN (09:28)
[2020-10-30 16:46] VITALS: BP 109/45
[2020-10-31] MEDS: OLANZapine 10 MG TABLET PO SCH ×2 (08:15→21:09)
[2020-10-31] MEDS: GABAPENTIN 300 MG CAPSULE PO SCH ×2 (08:15→21:09)
[2020-10-31] MEDS: LORazepam 2 MG TABLET PO PRN ×2 (08:53→16:21)
[2020-10-31] MEDS: HALOPERIDOL 5 MG TABLET PO PRN ×2 (08:53→16:21)
[2020-10-31 10:26] VITALS: BP 104/66
[2020-10-31] MEDS: NICOTINE 14 MG/24 HOUR PATCH TD PRN (16:21)
[2020-10-31 16:32] VITALS: BP 137/93
[2020-11-01] MEDS: OLANZapine 10 MG TABLET PO SCH ×2 (08:07→20:22)
[2020-11-01] MEDS: GABAPENTIN 300 MG CAPSULE PO SCH ×2 (08:07→20:22)
[2020-11-01] MEDS: NICOTINE 14 MG/24 HOUR PATCH TD PRN (08:07)
[2020-11-01] MEDS: LORazepam 2 MG TABLET PO PRN ×2 (08:07→15:30)
[2020-11-01 09:13] VITALS: BP 105/70
[2020-11-01] MEDS: IBUPROFEN 400 MG TABLET PO PRN (09:15)
[2020-11-01] MEDS: ACETAMINOPHEN 325 MG TABLET PO PRN (14:17)
[2020-11-01] MEDS: HALOPERIDOL 5 MG TABLET PO PRN (14:46)
[2020-11-01 16:00] VITALS: BP 114/74
[2020-11-02 08:37] VITALS: BP 108/76
[2020-11-02] MEDS: GABAPENTIN 300 MG CAPSULE PO SCH ×2 (08:41→20:42)
[2020-11-02] MEDS: OLANZapine 10 MG TABLET PO SCH ×2 (08:41→20:42)
[2020-11-02] MEDS: LORazepam 2 MG TABLET PO PRN (08:42)
[2020-11-02] MEDS: NICOTINE 14 MG/24 HOUR PATCH TD PRN (15:06)
[2020-11-02 16:00] VITALS: BP 105/71
[2020-11-03 01:06] VITALS: BP 114/73
[2020-11-03 08:31] VITALS: BP 105/60
[2020-11-03] MEDS: OLANZapine 10 MG TABLET PO SCH ×2 (08:40→20:18)
[2020-11-03] MEDS: GABAPENTIN 300 MG CAPSULE PO SCH ×2 (08:40→20:17)
[2020-11-03] MEDS: HALOPERIDOL 5 MG TABLET PO PRN (12:52)
[2020-11-03 16:00] VITALS: BP 114/73
[2020-11-03] MEDS: ACETAMINOPHEN 325 MG TABLET PO PRN (16:26)
[2020-11-04 01:20] VITALS: BP 103/74
[2020-11-04] MEDS: LORazepam 2 MG TABLET PO PRN (01:20)
[2020-11-04 08:15] VITALS: BP 120/74
[2020-11-04] MEDS: GABAPENTIN 300 MG CAPSULE PO SCH (08:29)
[2020-11-04] MEDS: OLANZapine 10 MG TABLET PO SCH (08:29)
[2020-11-04] MEDS ORDERED: OLAN10TA20 PO (10:18)
[2020-11-04] MEDS ORDERED: GABA-1181 PO (10:18)
== END 2020-11-04 15:30 | disposition home or self-care (01) | DRG 750 ==
LOC: EMS 23:05 → 3EI 10-20 00:36
DX: F25.1 Schizoaffective disorder, depressive type (principal); D72.829 Elevated white blood cell count, unspecified; F10.239 Alcohol dependence with withdrawal, unspecified; F31.9 Bipolar disorder, unspecified; F17.210 Nicotine dependence, cigarettes, uncomplicated; G40.909 Epilepsy, unspecified, not intractable, without status epilepticus; F15.20 Other stimulant dependence, uncomplicated; F41.9 Anxiety disorder, unspecified; R00.0 Tachycardia, unspecified; R45.851 Suicidal ideations; Z20.822 Contact with and (suspected) exposure to COVID-19; Z59.0 Homelessness; Z79.899 Other long term (current) drug therapy; Z91.5 Personal history of self-harm
CPT/HCPCS: 87426; 99285; G0480

== ENCOUNTER 2020-11-20 20:40 | Inpatient (IN) | payer MEDICAID, OTHER ==
[~2020-11-20] VITALS: Ht 160 cm; Wt 66.8 kg
[~2020-11-20 20:40] MED LIST changes: +OLAN10TA20 PO; -OLAN5TAB2 PO
[2020-11-20 21:29] LABS: BASOPHILS % (AUTO) 0.7 % (0.0-2.0); EOSINOPHILS % (AUTO) 4.9 % (1.0-6.0); HEMATOCRIT 40.2 % (36-46); HEMOGLOBIN 13.5 g/dL (12.0-16.0); LYMPHOCYTES # (AUTO) 4.1 K/uL (1.0-4.8); LYMPHOCYTES % (AUTO) 40.3 % (22.0-44.0); MEAN CORPUSCULAR HEMOGLOBIN 32.2 pg (26.0-34.0); MEAN CORPUSCULAR HGB CONC 33.4 G/dL (31.0-37.0); MEAN CORPUSCULAR VOLUME 96 fL (80-100); MONOCYTES # (AUTO) 0.7 K/uL (0.1-1.0); MONOCYTES % (AUTO) 6.9 % (2.0-9.0); NEUTROPHILS # (AUTO) 4.8 K/uL (1.8-7.7); NEUTROPHILS % (AUTO) 47.2 % (40.0-70.0); PLATELET COUNT (AUTO) 259 K/uL (150-450); RED BLOOD CELL COUNT(AUTO) 4.18 MIL/uL (4.00-5.20); RED CELL DISTRIBUTION WIDTH 12.8 % (11.5-14.5)
[2020-11-20 21:43] LABS: ANION GAP 12 mmol/L (8-16); CALCIUM, TOTAL 9.4 mg/dL (8.8-10.5); CARBON DIOXIDE 26 mmol/L (22-29); CHLORIDE 101 mmol/L (98-107); CREATININE 0.82 mg/dL (0.60-1.30); GLOMERULAR FILTR. RATE CALC > 60 mL/min (>60); GLUCOSE,RANDOM 86 mg/dL (70-110); POTASSIUM 3.3 mmol/L (3.5-5.1); SODIUM SERUM 139 mmol/L (136-145); UREA NITROGEN, BLOOD 10 mg/dL (7-18)
[2020-11-20 21:49] LABS: ALANINE AMINOTRANSFERASE 21 U/L (12-78); ALBUMIN 4.2 g/dL (3.4-5.0); ALKALINE PHOSPHATASE 77 U/L (46-116); ASPARTATE AMINOTRANSFERASE 16 U/L (15-37); BILIRUBIN,TOTAL 0.5 mg/dL (0.1-1.0)
[2020-11-20 22:07] LABS: HCG,QUANTITATIVE < 1 mIU/mL (0-6)
[2020-11-20 22:35] LABS: COVID AG,FIA SOURCE NASOPHARYNGEAL
[2020-11-21] MEDS: LORazepam 2 MG TABLET PO PRN ×2 (00:39→10:02)
[2020-11-21] MEDS: QUEtiapine FUMARATE 100 MG TABLET PO PRN (00:39)
[2020-11-21 01:51] VITALS: BP 125/64
[2020-11-21 08:16] VITALS: BP 129/70
[2020-11-21] MEDS ORDERED: POTASSIUM CHLORIDE 20 MEQ ER TABLET PO ONE (09:00)
[2020-11-21] MEDS ORDERED: MAGNESIUM HYDROXIDE SUSPENSION 30 ML UDCUP PO PRN (09:45)
[2020-11-21] MEDS ORDERED: ONDANSETRON HCL 4 MG TABLET PO PRN (09:45)
[2020-11-21] MEDS ORDERED: IBUPROFEN 400 MG TABLET PO PRN (09:45)
[2020-11-21] MEDS ORDERED: GuaiFENesin/D-METHORPHAN [SUGAR-FREE] 200-20MG/10 ML SYRUP UDCUP PO PRN (09:45)
[2020-11-21] MEDS ORDERED: ALBUTEROL SULFATE HFA 90 MCG/PUFF 8 GM INHALER IH PRN (09:45)
[2020-11-21] MEDS ORDERED: CloNIDine HCL 0.1 MG TABLET PO PRN (09:45)
[2020-11-21] MEDS ORDERED: DOCUSATE SODIUM 100 MG CAPSULE PO PRN (09:45)
[2020-11-21] MEDS ORDERED: LOPERAMIDE HCL 2 MG CAPSULE PO PRN (09:45)
[2020-11-21] MEDS ORDERED: MAG HYDROX/AL HYDROX/SIMETH ES 30 ML SUSPENSION UDCUP PO PRN (09:45)
[2020-11-21] MEDS ORDERED: PETROLATUM,WHITE 28 GM JELLY TP PRN (09:45)
[2020-11-21 16:23] VITALS: BP 118/68
[2020-11-21] MEDS: GABAPENTIN 300 MG CAPSULE PO SCH (20:03)
[2020-11-21] MEDS: OLANZapine 10 MG RAPDIS TABLET PO SCH (20:04)
[2020-11-22 02:00] VITALS: BP 111/71
[2020-11-22 08:16] VITALS: BP 122/83
[2020-11-22] MEDS: LORazepam 2 MG TABLET PO PRN (08:21)
[2020-11-22] MEDS: GABAPENTIN 300 MG CAPSULE PO SCH ×2 (08:22→20:21)
[2020-11-22] MEDS: OLANZapine 10 MG RAPDIS TABLET PO SCH ×2 (08:22→20:21)
[2020-11-22 08:29] LABS: CHOL/HDL RATIO 1.8 (3.9-5.7)
[2020-11-22 16:14] VITALS: BP 119/78
[2020-11-23 00:17] VITALS: BP 110/72
[2020-11-23 08:09] VITALS: BP 122/69
[2020-11-23] MEDS: GABAPENTIN 300 MG CAPSULE PO SCH ×2 (08:23→20:12)
[2020-11-23] MEDS: OLANZapine 10 MG RAPDIS TABLET PO SCH ×2 (08:23→20:13)
[2020-11-23] MEDS: LORazepam 2 MG TABLET PO PRN (08:23)
[2020-11-23 16:05] VITALS: BP 126/80
[2020-11-23] MEDS: ZOLPIDEM TARTRATE 10 MG TABLET PO PRN (20:13)
[2020-11-24 00:56] VITALS: BP 112/74
[2020-11-24 08:15] VITALS: BP 116/72
[2020-11-24] MEDS: GABAPENTIN 300 MG CAPSULE PO SCH ×2 (09:05→20:20)
[2020-11-24] MEDS: OLANZapine 10 MG RAPDIS TABLET PO SCH ×2 (09:06→20:20)
[2020-11-24] MEDS: LORazepam 2 MG TABLET PO PRN ×2 (09:06→16:57)
[2020-11-24 16:12] VITALS: BP 127/80
[2020-11-24] MEDS: ZOLPIDEM TARTRATE 10 MG TABLET PO PRN (20:20)
[2020-11-25 00:04] VITALS: BP_SYST 118; BP_SYST 75; BP_DIAS 17; BP_DIAS 74
[2020-11-25 08:20] VITALS: BP 122/78
[2020-11-25] MEDS: OLANZapine 10 MG RAPDIS TABLET PO SCH ×2 (08:58→21:00)
[2020-11-25] MEDS: GABAPENTIN 300 MG CAPSULE PO SCH ×2 (08:58→21:00)
[2020-11-25] MEDS: LORazepam 2 MG TABLET PO PRN (09:01)
[2020-11-25 16:04] VITALS: BP 104/62
[2020-11-26 00:47] VITALS: BP 101/68
[2020-11-26] MEDS: LORazepam 2 MG TABLET PO PRN ×2 (07:55→15:57)
[2020-11-26] MEDS: ACETAMINOPHEN 325 MG TABLET PO PRN (07:55)
[2020-11-26 08:19] VITALS: BP 101/68
[2020-11-26] MEDS: OLANZapine 10 MG RAPDIS TABLET PO SCH ×2 (08:25→20:23)
[2020-11-26] MEDS: GABAPENTIN 300 MG CAPSULE PO SCH ×2 (08:25→20:23)
[2020-11-26] MEDS: NICOTINE 14 MG/24 HOUR PATCH TD PRN (15:57)
[2020-11-26 16:28] VITALS: BP 108/70
[2020-11-27 01:01] VITALS: BP 102/76
[2020-11-27 08:12] VITALS: BP 107/63
[2020-11-27] MEDS: GABAPENTIN 300 MG CAPSULE PO SCH ×2 (08:30→19:57)
[2020-11-27] MEDS: OLANZapine 10 MG RAPDIS TABLET PO SCH ×2 (08:30→19:57)
[2020-11-27] MEDS: LORazepam 2 MG TABLET PO PRN ×2 (08:30→14:33)
[2020-11-27] MEDS: QUEtiapine FUMARATE 100 MG TABLET PO PRN (09:05)
[2020-11-27] MEDS: ACETAMINOPHEN 325 MG TABLET PO PRN (16:20)
[2020-11-27 16:26] VITALS: BP 102/78
[2020-11-27] MEDS: ZOLPIDEM TARTRATE 10 MG TABLET PO PRN (19:57)
[2020-11-28 04:13] VITALS: BP 102/66
[2020-11-28 08:10] VITALS: BP 126/76
[2020-11-28] MEDS: OLANZapine 10 MG RAPDIS TABLET PO SCH ×2 (08:12→20:13)
[2020-11-28] MEDS: GABAPENTIN 300 MG CAPSULE PO SCH ×2 (08:13→20:13)
[2020-11-28] MEDS: LORazepam 2 MG TABLET PO PRN ×2 (08:13→16:23)
[2020-11-28] MEDS: NICOTINE 14 MG/24 HOUR PATCH TD PRN (08:54)
[2020-11-28] MEDS: QUEtiapine FUMARATE 100 MG TABLET PO PRN ×2 (08:54→16:36)
[2020-11-28 16:17] VITALS: BP 112/75
[2020-11-29 00:46] VITALS: BP 103/70
[2020-11-29] MEDS: QUEtiapine FUMARATE 100 MG TABLET PO PRN (07:54)
[2020-11-29] MEDS: LORazepam 2 MG TABLET PO PRN (07:54)
[2020-11-29] MEDS: GABAPENTIN 300 MG CAPSULE PO SCH ×2 (08:10→20:05)
[2020-11-29] MEDS: OLANZapine 10 MG RAPDIS TABLET PO SCH ×2 (08:10→20:04)
[2020-11-29 08:23] VITALS: BP 117/68
[2020-11-29 16:35] VITALS: BP 106/75
[2020-11-30 00:52] VITALS: BP 102/73
[2020-11-30 08:00] VITALS: BP 115/72
[2020-11-30] MEDS: GABAPENTIN 300 MG CAPSULE PO SCH ×2 (08:13→20:01)
[2020-11-30] MEDS: LORazepam 2 MG TABLET PO PRN (08:13)
[2020-11-30] MEDS: OLANZapine 10 MG RAPDIS TABLET PO SCH ×2 (08:13→20:01)
[2020-11-30] MEDS: QUEtiapine FUMARATE 100 MG TABLET PO PRN (15:39)
[2020-11-30] MEDS: NICOTINE 14 MG/24 HOUR PATCH TD PRN (15:40)
[2020-11-30 16:08] VITALS: BP 113/72
[2020-12-01 01:08] VITALS: BP 124/77
[2020-12-01] MEDS: ZOLPIDEM TARTRATE 10 MG TABLET PO PRN (02:48)
[2020-12-01] MEDS: OLANZapine 10 MG RAPDIS TABLET PO SCH ×2 (08:03→20:16)
[2020-12-01] MEDS: GABAPENTIN 300 MG CAPSULE PO SCH ×2 (08:03→20:16)
[2020-12-01] MEDS: LORazepam 2 MG TABLET PO PRN ×2 (08:04→14:26)
[2020-12-01] MEDS: NICOTINE 14 MG/24 HOUR PATCH TD PRN (08:27)
[2020-12-01 08:33] VITALS: BP 106/65
[2020-12-01] MEDS: QUEtiapine FUMARATE 100 MG TABLET PO PRN (14:26)
[2020-12-01 16:15] VITALS: BP 116/73
[2020-12-02 00:21] VITALS: BP 110/76
[2020-12-02] MEDS: GABAPENTIN 300 MG CAPSULE PO SCH ×2 (08:09→20:11)
[2020-12-02] MEDS: OLANZapine 10 MG RAPDIS TABLET PO SCH (08:09)
[2020-12-02] MEDS: LORazepam 2 MG TABLET PO PRN ×2 (08:09→14:41)
[2020-12-02 08:11] VITALS: BP 116/69
[2020-12-02] MEDS: NICOTINE 14 MG/24 HOUR PATCH TD PRN (08:37)
[2020-12-02] MEDS: QUEtiapine FUMARATE 100 MG TABLET PO PRN ×2 (08:37→14:41)
[2020-12-02 16:08] VITALS: BP 127/72
[2020-12-02] MEDS: OLANZapine 7.5 MG TABLET PO SCH (20:11)
[2020-12-03 00:44] VITALS: BP 122/78
[2020-12-03] MEDS: OLANZapine 7.5 MG TABLET PO SCH ×2 (08:07→20:07)
[2020-12-03] MEDS: GABAPENTIN 300 MG CAPSULE PO SCH ×2 (08:07→20:07)
[2020-12-03 08:26] VITALS: BP 117/69
[2020-12-03] MEDS: LORazepam 2 MG TABLET PO PRN (08:35)
[2020-12-03] MEDS: QUEtiapine FUMARATE 100 MG TABLET PO PRN (08:35)
[2020-12-04 02:03] VITALS: BP 112/73
[2020-12-04] MEDS: GABAPENTIN 300 MG CAPSULE PO SCH ×2 (08:07→20:08)
[2020-12-04] MEDS: OLANZapine 7.5 MG TABLET PO SCH ×2 (08:07→20:09)
[2020-12-04] MEDS: LORazepam 2 MG TABLET PO PRN ×2 (08:08→17:04)
[2020-12-04 08:10] VITALS: BP 141/80
[2020-12-04] MEDS: QUEtiapine FUMARATE 100 MG TABLET PO PRN (08:47)
[2020-12-04] MEDS: NICOTINE 14 MG/24 HOUR PATCH TD PRN (14:05)
[2020-12-04 16:04] VITALS: BP 130/84
[2020-12-05 02:37] VITALS: BP 114/73
[2020-12-05] MEDS: GABAPENTIN 300 MG CAPSULE PO SCH ×2 (08:11→20:05)
[2020-12-05] MEDS: MULTIVITAMINS WITH MINERALS, THERAPEUTIC TABLET PO SCH (08:11)
[2020-12-05] MEDS: OLANZapine 7.5 MG TABLET PO SCH ×2 (08:11→20:05)
[2020-12-05] MEDS: LORazepam 2 MG TABLET PO PRN ×2 (08:11→16:06)
[2020-12-05] MEDS: NICOTINE 14 MG/24 HOUR PATCH TD PRN (08:12)
[2020-12-05] MEDS: THIAMINE 100 MG TABLET PO SCH (08:12)
[2020-12-05] MEDS: FOLIC ACID 1 MG TABLET PO SCH (08:12)
[2020-12-05 08:15] VITALS: BP 129/66
[2020-12-05] MEDS: QUEtiapine FUMARATE 100 MG TABLET PO PRN ×2 (10:11→16:24)
[2020-12-05 16:10] VITALS: BP 107/60
[2020-12-06 00:03] VITALS: BP 124/77
[2020-12-06 08:16] VITALS: BP 109/71
[2020-12-06] MEDS: MULTIVITAMINS WITH MINERALS, THERAPEUTIC TABLET PO SCH (08:45)
[2020-12-06] MEDS: OLANZapine 7.5 MG TABLET PO SCH ×2 (08:45→20:28)
[2020-12-06] MEDS: FOLIC ACID 1 MG TABLET PO SCH (08:45)
[2020-12-06] MEDS: GABAPENTIN 300 MG CAPSULE PO SCH ×2 (08:45→20:28)
[2020-12-06] MEDS: THIAMINE 100 MG TABLET PO SCH (08:46)
[2020-12-06] MEDS: LORazepam 2 MG TABLET PO PRN ×2 (09:56→16:41)
[2020-12-06] MEDS: NICOTINE 14 MG/24 HOUR PATCH TD PRN (10:37)
[2020-12-06] MEDS: QUEtiapine FUMARATE 100 MG TABLET PO PRN (10:37)
[2020-12-06 16:09] VITALS: BP 100/62
[2020-12-07 00:03] VITALS: BP 102/67
[2020-12-07 08:12] VITALS: BP 105/63
[2020-12-07] MEDS: OLANZapine 7.5 MG TABLET PO SCH ×2 (08:21→20:11)
[2020-12-07] MEDS: GABAPENTIN 300 MG CAPSULE PO SCH ×2 (08:21→20:11)
[2020-12-07] MEDS: FOLIC ACID 1 MG TABLET PO SCH (08:21)
[2020-12-07] MEDS: THIAMINE 100 MG TABLET PO SCH (08:21)
[2020-12-07] MEDS: MULTIVITAMINS WITH MINERALS, THERAPEUTIC TABLET PO SCH (08:21)
[2020-12-07 08:45] VITALS: BP 116/72
[2020-12-07] MEDS: QUEtiapine FUMARATE 100 MG TABLET PO PRN ×2 (08:47→14:27)
[2020-12-07] MEDS: LORazepam 2 MG TABLET PO PRN ×2 (08:47→14:27)
[2020-12-07 16:06] VITALS: BP 110/66
[2020-12-08 05:43] VITALS: BP 95/68
[2020-12-08 08:28] VITALS: BP 114/65
[2020-12-08] MEDS: OLANZapine 7.5 MG TABLET PO SCH ×2 (08:28→20:12)
[2020-12-08] MEDS: GABAPENTIN 300 MG CAPSULE PO SCH ×2 (08:28→20:12)
[2020-12-08] MEDS: FOLIC ACID 1 MG TABLET PO SCH (08:28)
[2020-12-08] MEDS: MULTIVITAMINS WITH MINERALS, THERAPEUTIC TABLET PO SCH (08:28)
[2020-12-08] MEDS: THIAMINE 100 MG TABLET PO SCH (08:28)
[2020-12-08] MEDS: LORazepam 2 MG TABLET PO PRN ×2 (08:39→16:28)
[2020-12-08] MEDS: QUEtiapine FUMARATE 100 MG TABLET PO PRN ×2 (08:39→16:26)
[2020-12-08 16:42] VITALS: BP 107/65
[2020-12-09 01:14] VITALS: BP 102/70
[2020-12-09] MEDS: LORazepam 2 MG TABLET PO PRN ×3 (01:33→13:29)
[2020-12-09] MEDS: FOLIC ACID 1 MG TABLET PO SCH (08:13)
[2020-12-09] MEDS: MULTIVITAMINS WITH MINERALS, THERAPEUTIC TABLET PO SCH (08:13)
[2020-12-09] MEDS: GABAPENTIN 300 MG CAPSULE PO SCH ×2 (08:13→20:57)
[2020-12-09] MEDS: THIAMINE 100 MG TABLET PO SCH (08:13)
[2020-12-09] MEDS: OLANZapine 7.5 MG TABLET PO SCH ×2 (08:13→20:58)
[2020-12-09 08:25] VITALS: BP 112/70
[2020-12-09] MEDS: QUEtiapine FUMARATE 100 MG TABLET PO PRN (08:34)
[2020-12-09] MEDS ORDERED: GABA-1181 PO (09:26)
[2020-12-09] MEDS ORDERED: OLAN7.5T2 PO (09:29)
[2020-12-09] MEDS: NICOTINE 14 MG/24 HOUR PATCH TD PRN (14:39)
[2020-12-09 16:15] VITALS: BP 104/60
[2020-12-10 00:44] VITALS: BP 102/67
[2020-12-10 08:12] VITALS: BP 120/75
[2020-12-10] MEDS: GABAPENTIN 300 MG CAPSULE PO SCH (08:16)
[2020-12-10] MEDS: THIAMINE 100 MG TABLET PO SCH (08:16)
[2020-12-10] MEDS: MULTIVITAMINS WITH MINERALS, THERAPEUTIC TABLET PO SCH (08:16)
[2020-12-10] MEDS: FOLIC ACID 1 MG TABLET PO SCH (08:16)
[2020-12-10] MEDS: OLANZapine 7.5 MG TABLET PO SCH (08:17)
[2020-12-10 16:27] VITALS: BP 135/85
== END 2020-12-10 16:00 | disposition home or self-care (01) | DRG 750 ==
LOC: EMS 20:40 → B3A 23:00
DX: F25.1 Schizoaffective disorder, depressive type (principal); R45.851 Suicidal ideations; G40.909 Epilepsy, unspecified, not intractable, without status epilepticus; E87.6 Hypokalemia; Z20.822 Contact with and (suspected) exposure to COVID-19; F17.200 Nicotine dependence, unspecified, uncomplicated; Z91.5 Personal history of self-harm; F41.9 Anxiety disorder, unspecified; F15.10 Other stimulant abuse, uncomplicated
CPT/HCPCS: 80053; 80061; 84132; 84702; 85025; 87081; 87426; 99285; G0480

== ENCOUNTER 2021-01-04 08:47 | Emergency (ER) | payer MEDICAID, OTHER ==
[~2021-01-04] VITALS: Ht 165.1 cm; Wt 75.0 kg
[~2021-01-04 08:47] MED LIST changes: -OLAN10TA20 PO; +OLAN7.5T2 PO
[2021-01-04 08:52] VITALS: BP 123/86
[2021-01-04] MEDS ORDERED: IBUPROFEN 600 MG TABLET PO ONE (09:00)
[2021-01-04] MEDS ORDERED: AMOX TR/POT CLAV 875 MG/125 MG TABLET PO ONE (09:00)
== END 2021-01-04 09:43 | disposition home or self-care (01) ==
LOC: EMS 08:53
DX: L03.011 Cellulitis of right finger (principal); F41.9 Anxiety disorder, unspecified; F31.9 Bipolar disorder, unspecified; F20.9 Schizophrenia, unspecified; F17.210 Nicotine dependence, cigarettes, uncomplicated; F19.90 Other psychoactive substance use, unspecified, uncomplicated
CPT/HCPCS: 99283